=== PATIENT | female | born 1970 | race Caucasian/White ===

== ENCOUNTER 2022-07-05 20:50 | Inpatient (IN) | payer BC ==
[~2022-07-05] VITALS: Ht 152.4 cm; Wt 60.7 kg
[2022-07-05 21:01] LABS: BASOPHILS % (AUTO) 0 % (0-10); EOSINOPHILS % (AUTO) 0 % (0-10); HEMATOCRIT 41 % (35-52); HEMOGLOBIN 13.7 g/dL (11.5-16.0); LYMPHOCYTES # (AUTO) 0.7 10^3/uL (1.0-4.0); LYMPHOCYTES % (AUTO) 6 % (12-44); MEAN CORPUSCULAR HEMOGLOBIN 32 pg (25-34); MEAN CORPUSCULAR HGB CONC 34 g/dL (32-36); MEAN CORPUSCULAR VOLUME 96 fL (80-99); MEAN PLATELET VOLUME 10.5 fL (9.0-12.2); MONOCYTES # (AUTO) 0.7 10^3/uL (0.0-1.0); MONOCYTES % (AUTO) 6 % (0-12); NEUTROPHILS # (AUTO) 10.5 10^3/uL (1.8-7.8); NEUTROPHILS % (AUTO) 88 % (42-75); PLATELET COUNT 180 10^3/uL (130-400); WHITE BLOOD COUNT 11.9 10^3/uL (4.3-11.0)
--- NOTE | 2022-07-05 21:11 | ED Psychosocial ---
General Chief Complaint: Substance Abuse Stated Complaint: POSS OD Source: family Exam Limitations: clinical condition History of Present Illness Date Seen by Provider: Jul 05, 2022 Time Seen by Provider: 20:55 Initial Comments Patient is a 51-year-old female history of alcoholism presents after an apparent drug overdose. Patient was involved in a DUI overnight and rested. She was last seen normal several hours ago by her spouse who upon returning from work this evening found her to be agitated confused with tremors. Patient had empty bottle of Xanax 0.25 milligrams Xanax, which was filled 3 days ago with 48 pills missed, and an empty bottle of Wellbutrin 150 mg XL filled 8 days ago with 22 pills missing. The patient is continued to be agitated brought to the ED by POV per the patient's spouse there is no statement or no that she intended to harm herself. She has history of previous suicide attempts. History is limited by the patient's clinical condition. Timing/Duration: other Severity: moderate Associated Symptoms: other Allergies and Home Medications Allergies Uncoded Allergies: Unknown (Allergy, Unknown, 07/05/22) Unknown what allergies are Patient Home Medication List Home Medication List Reviewed: Yes Review of Systems Constitutional: see HPI EENTM: see HPI Respiratory: see HPI Cardiovascular: see HPI Gastrointestinal: see HPI Genitourinary: see HPI Musculoskeletal: see HPI Skin: see HPI Psychiatric/Neurological: See HPI All Other Systems Reviewed Negative Unless Noted: No Physical Exam Vital Signs - First Documented 07/05/22 20:50 Temp 36.4 Pulse 116 Resp 20 B/P (MAP) 148/110 (123) Pulse Ox 93 O2 Delivery Room Air Capillary Refill : Height, Weight, BMI Height: '" Weight: lbs. oz. kg; BMI Method: General Appearance: other ( delirium with agitation and coarse resting tremors.) HEENT: PERRL/EOMI, normal ENT inspection, other (Gag reflex intact) Neck: full range of motion Respiratory: lungs clear Cardiovascular: tachycardia Gastrointestinal: non tender, soft Extremities: non-tender, normal inspection Neurologic/Psychiatric: alert, other (Agitated, nonverbal, coarse resting tremor) Thoughts/Hallucinations: other (Unable to evaluate) Skin: diaphoresis, other (Diaphoresis) Progress/Results/Core Measures Results/Orders Lab Results Laboratory Tests Test 07/05/22 20:55 07/05/22 21:00 07/05/22 21:17 Range/Units White Blood Count 11.9 H 4.3-11.0 10^3/uL Red Blood Count 4.26 3.80-5.11 10^6/uL Hemoglobin 13.7 11.5-16.0 g/dL Hematocrit 41 35-52 % Mean Corpuscular Volume 96 80-99 fL Mean Corpuscular Hemoglobin 32 25-34 pg Mean Corpuscular Hemoglobin Concent 34 32-36 g/dL Red Cell Distribution Width 13.5 10.0-14.5 % Platelet Count 180 130-400 10^3/uL Mean Platelet Volume 10.5 9.0-12.2 fL Immature Granulocyte % (Auto) 0 % Neutrophils (%) (Auto) 88 H 42-75 % Lymphocytes (%) (Auto) 6 L 12-44 % Monocytes (%) (Auto) 6 0-12 % Eosinophils (%) (Auto) 0 0-10 % Basophils (%) (Auto) 0 0-10 % Neutrophils # (Auto) 10.5 H 1.8-7.8 10^3/uL Lymphocytes # (Auto) 0.7 L 1.0-4.0 10^3/uL Monocytes # (Auto) 0.7 0.0-1.0 10^3/uL Eosinophils # (Auto) 0.0 0.0-0.3 10^3/uL Basophils # (Auto) 0.0 0.0-0.1 10^3/uL Immature Granulocyte # (Auto) 0.0 0.0-0.1 10^3/uL Neutrophils % (Manual) 85 % Lymphocytes % (Manual) 9 % Monocytes % (Manual) 6 % Percent Immature Platelet Fraction 5.2 0.0-7.6 % Sodium Level 140 135-145 MMOL/L Potassium Level 3.5 L 3.6-5.0 MMOL/L Chloride Level 99 98-107 MMOL/L Carbon Dioxide Level 26 21-32 MMOL/L Anion Gap 15 H 5-14 MMOL/L Blood Urea Nitrogen 18 7-18 MG/DL Creatinine 0.71 0.60-1.30 MG/DL Estimat Glomerular Filtration Rate 103 BUN/Creatinine Ratio 25 Glucose Level 139 H 70-105 MG/DL Calcium Level 8.9 8.5-10.1 MG/DL Corrected Calcium 8.7 8.5-10.1 MG/DL Magnesium Level 2.2 1.6-2.4 MG/DL Total Bilirubin 0.4 0.1-1.0 MG/DL Aspartate Amino Transf (AST/SGOT) 30 5-34 U/L Alanine Aminotransferase (ALT/SGPT) 14 0-55 U/L Alkaline Phosphatase 56 40-136 U/L Total Protein 6.9 6.4-8.2 GM/DL Albumin 4.3 3.2-4.5 GM/DL Salicylates Level < 0.3 L 5.0-20.0 MG/DL Acetaminophen Level < 10 L 10-30 UG/ML Serum Alcohol < 10 <10 MG/DL Urine Opiates Screen NEGATIVE NEGATIVE Urine Oxycodone Screen NEGATIVE NEGATIVE Urine Methadone Screen NEGATIVE NEGATIVE Urine Propoxyphene Screen NEGATIVE NEGATIVE Urine Barbiturates Screen NEGATIVE NEGATIVE Ur Tricyclic Antidepressants Screen NEGATIVE NEGATIVE Urine Phencyclidine Screen NEGATIVE NEGATIVE Urine Amphetamines Screen NEGATIVE NEGATIVE Urine Methamphetamines Screen NEGATIVE NEGATIVE Urine Benzodiazepines Screen POSITIVE H NEGATIVE Urine Cocaine Screen NEGATIVE NEGATIVE Urine Cannabinoids Screen NEGATIVE NEGATIVE Glucometer 133 H 70-110 MG/DL My Orders Orders - MIRNA LOPEZ DO Cbc With Automated Diff (07/05/22 20:55) Comprehensive Metabolic Panel (07/05/22 20:55) Ekg Tracing (07/05/22 20:55) Magnesium (07/05/22 20:55) Drug Screen Stat (Urine) (07/05/22 20:55) Alcohol (07/05/22 20:55) Catheter(Urinary) Insert & Ass 03,15 (07/05/22 20:55) Manual Differential (07/05/22 20:55) Acetaminophen (07/05/22 21:05) Accucheck Stat ONCE (07/05/22 21:13) Monitor-Rhythm Ecg Trace Only (07/05/22 21:21) Ferrari Cath (07/05/22 21:21) Ed Iv/Invasive Line Start (07/05/22 21:21) Creatine Kinase (07/05/22 21:29) Propofol Drip (Icu) (Diprivan Drip (Icu) (07/05/22 21:45) Sedation Vacation 05 (07/05/22 21:32) Magnesium (07/05/22 05:00) Chest 1 View Ap/Pa Only (2/25/23 21:32) Ct Head Wo (07/05/22 21:32) Salicylate (07/05/22 21:41) Vital Signs/I&O 07/05/22 20:50 Temp 36.4 Pulse 116 Resp 20 B/P (MAP) 148/110 (123) Pulse Ox 93 O2 Delivery Room Air Departure Communication (Admissions) EKG: Sinus tach, rate 109, nonspecific ST-T wave abnormalities QRS, normal. Chest x-ray: ET tube in proper placement Patient with acute symptoms bupropion and Xanax overdose with delirium, agitation tachyarrhythmia. No seizure activity witnessed. QRS normal. Blood sugar normal. Lab work otherwise reassuring. Ativan IV fluids given. Poison control notified. Recommendations are for continued supportive care and cardiac monitoring. Given the patient's history of alcoholism she is at high risk for seizures. Dr. Chirinos to admit to ICU. Dr. Silvana Muniz consulted. Impression Primary Impression: Agitation Additional Impressions: Acute delirium Drug overdose Tachyarrhythmia Chronic alcohol abuse Disposition: ADMITTED INPATIENT Condition: Critical Admissions Decision to Admit Reason: Admit from ER (General) Decision to Admit/Date: Jul 05, 2022 Time/Decision to Admit Time: 22:14 Transfer Method of Transfer: EMS Departure-Patient Inst. Referrals: NO,LOCAL PHYSICIAN (PCP/Family) Primary Care Physician MIRNA LOPEZ DO Jul 05, 2022 21:11
[2022-07-05 21:15] LABS: AMPHETAMINE SCREEN, URINE NEGATIVE (NEGATIVE); BARBITURATE SCREEN URINE NEGATIVE (NEGATIVE); BENZODIAZEPINES SCREEN URINE POSITIVE (NEGATIVE); CANNABINOID SCREEN, URINE NEGATIVE (NEGATIVE); COCAINE SCREEN URINE NEGATIVE (NEGATIVE); METHADONE STAT NEGATIVE (NEGATIVE); OPIATE SCREEN URINE NEGATIVE (NEGATIVE); OXYCODONE STAT NEGATIVE (NEGATIVE); PROPOXYPHENE STAT NEGATIVE (NEGATIVE); TRICYCLIC ANTIDEPRESSANTS SCRE NEGATIVE (NEGATIVE)
[2022-07-05 21:23] LABS: ALANINE AMINOTRANSFERASE 14 U/L (0-55); ALBUMIN 4.3 GM/DL (3.2-4.5); ALKALINE PHOSPHATASE 56 U/L (40-136); BILIRUBIN,TOTAL 0.4 MG/DL (0.1-1.0); BUN/CREATININE RATIO 25; CALCIUM 8.9 MG/DL (8.5-10.1); CARBON DIOXIDE 26 MMOL/L (21-32); CHLORIDE 99 MMOL/L (98-107); CREATININE SERUM 0.71 MG/DL (0.60-1.30); GFR ESTIMATED 103; GLUCOSE 139 MG/DL (70-105); MAGNESIUM 2.2 MG/DL (1.6-2.4); POTASSIUM 3.5 MMOL/L (3.6-5.0); SODIUM 140 MMOL/L (135-145); TOTAL PROTEIN 6.9 GM/DL (6.4-8.2)
[2022-07-05 21:42] LABS: LYMPHOCYTES % (MANUAL) 9 %; MONOCYTES % (MANUAL) 6 %; NEUTROPHILS % (MANUAL) 85 %
[2022-07-05] MEDS ORDERED: PROPOFOL DRIP (ICU) 100 ML IV SCH (21:45)
--- NOTE | 2022-07-05 21:58 | Diagnostic Imaging Report ---
PROCEDURE: CT head without contrast. TECHNIQUE: Multiple contiguous axial images were obtained through the brain without the use of intravenous contrast. Auto Exposure Controls were utilized during the CT exam to meet ALARA standards for radiation dose reduction. INDICATION: Altered mental status. COMPARISON: None. FINDINGS: No intracranial hemorrhage, mass effect, hydrocephalus or extra-axial fluid collection. No CT evidence of a territorial infarction. Osseous structures are intact. Paranasal sinuses and mastoids are clear, where seen. IMPRESSION: No acute intracranial CT finding. Dictated by: Dictated on workstation # [id number]
[2022-07-05 23:32] VITALS: BP 115/91
[2022-07-05] MEDS ORDERED: NS IV 500 ML 500 ML IV PRN (23:45)
[2022-07-06 00:05] LABS: ABG BASE EXCESS 2.3 MMOL/L (-2.5-2.5); ABG OXYGEN SATURATION 100 % (94-100); ABG PCO2 26 MMHG (35-45); ABG PH 7.58 (7.37-7.43); ABG PO2 314 MMHG (79-93); ABG TCO2 25.4 MMOL/L (21.0-31.0)
[2022-07-06 00:06] LABS: ALLENS TEST NO; INSPIRED O2 100%; PATIENT TEMP 36.6; VENTILATOR YES
[2022-07-06] MEDS ORDERED: D5 NS 1000 ML IV SOLUTION 1,000 ML IV SCH (01:15)
[2022-07-06 02:37] VITALS: BP 97/61
[2022-07-06 03:52] LABS: BASOPHILS % (AUTO) 0 % (0-10); EOSINOPHILS % (AUTO) 0 % (0-10); HEMATOCRIT 35 % (35-52); LYMPHOCYTES # (AUTO) 0.5 10^3/uL (1.0-4.0); LYMPHOCYTES % (AUTO) 5 % (12-44); MEAN CORPUSCULAR HEMOGLOBIN 32 pg (25-34); MEAN CORPUSCULAR HGB CONC 34 g/dL (32-36); MEAN CORPUSCULAR VOLUME 95 fL (80-99); MEAN PLATELET VOLUME 10.9 fL (9.0-12.2); MONOCYTES # (AUTO) 0.6 10^3/uL (0.0-1.0); MONOCYTES % (AUTO) 7 % (0-12); NEUTROPHILS # (AUTO) 7.9 10^3/uL (1.8-7.8); NEUTROPHILS % (AUTO) 88 % (42-75); PLATELET COUNT 156 10^3/uL (130-400); WHITE BLOOD COUNT 9.1 10^3/uL (4.3-11.0)
[2022-07-06 04:01] LABS: CALCIUM 7.7 MG/DL (8.5-10.1)
[2022-07-06 04:05] LABS: CREATININE SERUM 0.74 MG/DL (0.60-1.30); PHOSPHORUS 1.3 MG/DL (2.3-4.7)
[2022-07-06 04:07] LABS: MAGNESIUM 1.8 MG/DL (1.6-2.4)
[2022-07-06 04:26] LABS: POTASSIUM 2.5 MMOL/L (3.6-5.0)
[2022-07-06] MEDS: POTASSIUM CL 10MEQ/50ML IVPB 50 ML IV SCH ×11 (04:45→22:54)
[2022-07-06] MEDS: KCL 20 MEQ TAB (K-DUR) PO SCH (04:46)
[2022-07-06 04:54] LABS: ABG BASE EXCESS 3.8 MMOL/L (-2.5-2.5); ABG OXYGEN SATURATION 100 % (94-100); ABG PCO2 28 MMHG (35-45); ABG PH 7.57 (7.37-7.43); ABG PO2 182 MMHG (79-93); ABG TCO2 27.1 MMOL/L (21.0-31.0); ALLENS TEST NO; INSPIRED O2 40%; PATIENT TEMP 36.3; VENTILATOR YES
[2022-07-06] MEDS: MAGNESIUM 1 GM/100 ML IVPB 100 ML IV SCH ×3 (06:05→08:08)
[2022-07-06] MEDS: LORazepam INJ 2 MG/ML (ATIVAN) VIAL IV PRN ×2 (06:13→19:45)
--- NOTE | 2022-07-06 06:21 | History & Physical-Hospitalist ---
History of Present Illness HPI/Chief Complaint CC: Alcohol intoxication with withdrawal and Wellbutrin and Xanax OD HPI: This is a 51yoWF who has a h/o alcoholism who presented to the [facility] ER in alcohol withdrawal with intoxication with OD of Wellbutrin and Xanax. She was intubated to protect her airway. Family at bedside. UOP and mild hypotension noted so ordered fluid boluses. Source: family, RN/MD Exam Limitations: clinical condition Date Seen 07/06/22 Time Seen by a Provider: 11:30 Attending Physician No,Local Physician PCP Admitting Physician: Radha Chirinos DO Attending Physician: Radha Chirinos DO Referring Physician Date of Admission Jul 05, 2022 at 23:15 Home Medications & Allergies Home Medications Reviewed patient Home Medication Reconciliation performed by pharmacy medication reconciliations graphics edit technician and/or nursing. Patients Allergies have been reviewed. Allergies Allergies Uncoded Allergies Unknown ( Allergy, Unknown, 07/05/22) Unknown what allergies are Past Eztczpz-Xicmem-Rivaxs Hx Patient Social History Smoking Status: Unknown if Ever Smoked Smokeless Tobacco Frequency: Unknown if Ever Used Use of E-Cig and/or Vaping Andrew: Unknown if Ever Used Substance use?: Yes Substance type: Misuse of prescript meds Alcohol Use?: Yes Pt feels they are or have been: Unable to obtain Current Status Advance Directives: Unable to obtain Communicates: Verbally Primary Language: Lao Preferred Spoken Language: Lao Is interpretation needed?: No Past Medical History Nursing Suicide Risk Notes: This information was provided by the person who dropped her off to the ER. Patient has had previous suicide attempts by overdose in the past. Review of Systems Constitutional: see HPI Physical Exam Physical Exam Vital Signs Vital Signs - First Documented 07/05/22 07/05/22 07/05/22 20:50 22:33 23:15 Temp 36.4 Pulse 116 Resp 20 B/P (MAP) 148/110 (123) Pulse Ox 93 O2 Delivery Room Air O2 Flow Rate 50.00 FiO2 100 Capillary Refill : Less Than 3 Seconds Height, Weight, BMI Height: '" Weight: lbs. oz. kg; 22.17 BMI Method: General Appearance: Chronically ill, Other (sedated and intubated) Respiratory: Lungs Clear, Normal Breath Sounds Cardiovascular: Regular Rate, Rhythm Results Results/Procedures Labs Laboratory Tests 07/05/22 20:55 07/06/22 03:33 07/06/22 15:58 Patient resulted labs reviewed. Assessment/Plan Admission Diagnosis Assessment: Acute respiratory failure requiring intubation Acute alcohol intoxication with withdrawal OD on Wellbutrin and Xanax Plan: EICU appreciated Vent management Supportive care IVF Admission Status: Inpatient Order (span 2 midnights) Reason for Inpatient Admission: resp failure Diagnosis/Problems Diagnosis/Problems (1) Drug overdose Status: Acute (2) Acute delirium Status: Acute (3) Chronic alcohol abuse Status: Acute RADHA CHIRINOS DO Jul 06, 2022 06:21
--- NOTE | 2022-07-06 07:08 | Diagnostic Imaging Report ---
INDICATION: ET tube placement FINDINGS: ET tube tip lower thoracic trachea. The lungs symmetrically expanded. No focal consolidation, failure, effusion or pneumothorax. IMPRESSION: Clear chest. ET tube projects in good alignment. Dictated by: Dictated on workstation # [id number]
--- NOTE | 2022-07-06 07:30 | Tele-ICU Progress Note ---
Progress Note video rounds completed 51 y/o f who presented to the ED with agitation, delirium and tremors assoc with an OD of xanax and wellbutrin. She was intubated in the ED She has a hx of ETOH abuse and prior suicidal gestures. Her Urine tox was positive for benzos QRS: wnl Poison control notified Currently intubated Vent: 18/400/40%/5 AB.57/28/182/26 Pulse: 86 NSR BP: 102/66 O2 sat: 98% Sedated on propofol and comfortable IMP: OD with benzos and wellbutrin on mechanical vent. LISA: will turn down rateto 12 since she is being over ventilated add protonic and lovenox Consider SBT later Time spent in evaluation 20 minutes Focused Exam Height, Weight, BMI Height: '" Weight: lbs. oz. kg; 22.17 BMI Method: Labs Laboratory Tests 07/05/22 20:55 07/06/22 03:33 Results Results/Procedures Labs Laboratory Tests 07/05/22 20:55 07/06/22 03:33 Patient resulted labs reviewed. Results Labs Labs Laboratory Tests 07/05/22 20:55: White Blood Count 11.9H, Red Blood Count 4.26, Hemoglobin 13.7, Hematocrit 41, Mean Corpuscular Volume 96, Mean Corpuscular Hemoglobin 32, Mean Corpuscular Hemoglobin Concent 34, Red Cell Distribution Width 13.5, Platelet Count 180, Mean Platelet Volume 10.5, Immature Granulocyte % (Auto) 0, Neutrophils (%) (Auto) 88H, Lymphocytes (%) (Auto) 6L, Monocytes (%) (Auto) 6, Eosinophils (%) (Auto) 0, Basophils (%) (Auto) 0, Neutrophils # (Auto) 10.5H, Lymphocytes # (Auto) 0.7L, Monocytes # (Auto) 0.7, Eosinophils # (Auto) 0.0, Basophils # (Auto) 0.0, Immature Granulocyte # (Auto) 0.0, Neutrophils % (Manual) 85, Lymphocytes % (Manual) 9, Monocytes % (Manual) 6, Percent Immature Platelet Fraction 5.2, Sodium Level 140, Potassium Level 3.5L, Chloride Level 99, Carbon Dioxide Level 26, Anion Gap 15H, Blood Urea Nitrogen 18, Creatinine 0.71, Estimat Glomerular Filtration Rate 103, BUN/Creatinine Ratio 25, Glucose Level 139H, Calcium Level 8.9, Corrected Calcium 8.7, Magnesium Level 2.2, Total Bilirubin 0.4, Aspartate Amino Transf (AST/SGOT) 30, Alanine Aminotransferase (ALT/SGPT) 14, Alkaline Phosphatase 56, Total Creatine Kinase 649H, Total Protein 6.9, Albumin 4.3, Salicylates Level < 0.3L, Acetaminophen Level < 10L, Serum Alcohol < 10 07/05/22 21:00: Urine Opiates Screen NEGATIVE, Urine Oxycodone Screen NEGATIVE, Urine Methadone Screen NEGATIVE, Urine Propoxyphene Screen NEGATIVE, Urine Barbiturates Screen NEGATIVE, Ur Tricyclic Antidepressants Screen NEGATIVE, Urine Phencyclidine Screen NEGATIVE, Urine Amphetamines Screen NEGATIVE, Urine Methamphetamines Screen NEGATIVE, Urine Benzodiazepines Screen POSITIVEH, Urine Cocaine Screen NEGATIVE, Urine Cannabinoids Screen NEGATIVE 07/05/22 21:17: Glucometer 133H 07/05/22 23:52: Blood Gas Puncture Site LEFT RAD, Blood Gas Patient Temperature 36.6, Arterial Blood pH 7.58H, Arterial Blood Partial Pressure CO2 26L, Arterial Blood Partial Pressure O2 314H, Arterial Blood HCO3 25, Arterial Blood Total CO2 25.4, Arter ial Blood Oxygen Saturation 100, Arterial Blood Base Excess 2.3, Panda Test NO, Blood Gas Ventilator Setting YES, Blood Gas Inspired Oxygen 100% 07/06/22 00:13: Glucometer 90 07/06/22 03:33: White Blood Count 9.1, Red Blood Count 3.73L, Hemoglobin 12.0, Hematocrit 35, Mean Corpuscular Volume 95, Mean Corpuscular Hemoglobin 32, Mean Corpuscular Hemoglobin Concent 34, Red Cell Distribution Width 13.4, Platelet Count 156, Mean Platelet Volume 10.9, Immature Granulocyte % (Auto) 0, Neutrophils (%) (Auto) 88H, Lymphocytes (%) (Auto) 5L, Monocytes (%) (Auto) 7, Eosinophils (%) (Auto) 0, Basophils (%) (Auto) 0, Neutrophils # (Auto) 7.9H, Lymphocytes # (Auto) 0.5L, Monocytes # (Auto) 0.6, Eosinophils # (Auto) 0.0, Basophils # (Auto) 0.0, Immature Granulocyte # (Auto) 0.0, Sodium Level 139, Potassium Level 2.5#*L, Chloride Level 106, Carbon Dioxide Level 20L, Anion Gap 13, Blood Urea Nitrogen 15, Creatinine 0.74, Estimat Glomerular Filtration Rate 98, BUN/Creatinine Ratio 20, Glucose Level 372H, Calcium Level 7.7L, Phosphorus Level 1.3L, Magnesium Level 1.8, Total Creatine Kinase 699H, Triglycerides Level 60 07/06/22 03:40: Blood Gas Puncture Site LEFT RADIAL, Blood Gas Patient Temperature 36.3, Arterial Blood pH 7.57H, Arterial Blood Partial Pressure CO2 28L, Arterial Blood Partial Pressure O2 182H, Arterial Blood HCO3 26, Arterial Blood Total CO2 27.1, Arterial Blood Oxygen Saturation 100, Arterial Blood Base Excess 3.8H, Panda Test NO, Blood Gas Ventilator Setting YES, Blood Gas Inspired Oxygen 40% MORAIMA VELA MD Jul 06, 2022 07:30
[2022-07-06 07:38] VITALS: BP 103/68
[2022-07-06] MEDS: PANTOPRAZOLE 40 MG (PROTONIX) VIAL IV SCH (08:08)
[2022-07-06] MEDS: ENOXAPARIN 40 MG/0.4 ML (LOVENOX) SYR SC SCH (08:08)
--- NOTE | 2022-07-06 08:09 | Diagnostic Imaging Report ---
EXAMINATION: Chest radiograph, portable AP view. DATE: 07/06/2022 4:32 AM INDICATION: 51-year-old female, intubation. COMPARISON: July 05, 2022. FINDINGS: The intubation device is approximately 2 cm above the reta. The nasogastric tube is in the stomach. Heart size and mediastinal contours are unchanged. There is no identified pneumothorax. There is no large pleural effusion. There are subtle opacities projecting in the left lower lung zone. IMPRESSION: 1. Subtle opacities in left lower lung zone which may reflect atelectasis and/or infiltrate. 2. Interval placement of nasogastric tube in the stomach. Dictated by: Dictated on workstation # [id number]
[2022-07-06] MEDS: NS IV 1000 ML 1,000 ML IV SCH ×2 (09:30→19:33)
[2022-07-06] MEDS ORDERED: inSUlin ASPART (NovoLOG) 1 UNIT/0.01 ML (CHARGE PER UNIT) SC NR (09:30)
[2022-07-06 10:56] VITALS: BP 90/55
[2022-07-06] MEDS ORDERED: DEXTROSE 50% 50 ML (IMS) SYR ONE (11:08)
[2022-07-06] MEDS ORDERED: DEXTROSE 50% 50 ML (IMS) SYR IV ONE (11:15)
[2022-07-06] MEDS ORDERED: NS (IVPB) 500 ML IV ONE (12:00)
[2022-07-06] MEDS ORDERED: NS (IVPB) 500 ML IV PRN (12:00)
[2022-07-06] MEDS ORDERED: DEXTROSE 50% 50 ML (IMS) SYR IV PRN (12:15)
[2022-07-06] MEDS: THIAMINE INJECTION 100 MG, FOLIC ACID INJECTION 1 MG, VITAMIN MULTI INJECTION 10 ML, MA... IV SCH ×5 (13:00)
[2022-07-06 18:46] VITALS: BP 102/63
[2022-07-06] MEDS ORDERED: MUPIROCIN 2% OINT 22 GM (BACTROBAN) TUBE TOP SCH (21:00)
[2022-07-06 21:56] VITALS: BP 101/66
[2022-07-07] MEDS: NS IV 1000 ML 1,000 ML IV SCH ×4 (01:56→23:45)
[2022-07-07 02:21] VITALS: BP 104/97
[2022-07-07 04:46] LABS: BASOPHILS # (AUTO) 0.1 10^3/uL (0.0-0.1); BASOPHILS % (AUTO) 0 % (0-10); EOSINOPHILS % (AUTO) 0 % (0-10); HEMATOCRIT 39 % (35-52); HEMOGLOBIN 13.2 g/dL (11.5-16.0); LYMPHOCYTES # (AUTO) 1.4 10^3/uL (1.0-4.0); LYMPHOCYTES % (AUTO) 6 % (12-44); MEAN CORPUSCULAR HEMOGLOBIN 33 pg (25-34); MEAN CORPUSCULAR HGB CONC 34 g/dL (32-36); MEAN CORPUSCULAR VOLUME 98 fL (80-99); MONOCYTES # (AUTO) 1.8 10^3/uL (0.0-1.0); MONOCYTES % (AUTO) 8 % (0-12); NEUTROPHILS # (AUTO) 20.1 10^3/uL (1.8-7.8); NEUTROPHILS % (AUTO) 85 % (42-75); PLATELET COUNT 114 10^3/uL (130-400); WHITE BLOOD COUNT 23.6 10^3/uL (4.3-11.0)
[2022-07-07 05:01] LABS: CALCIUM 7.6 MG/DL (8.5-10.1); CREATININE SERUM 0.63 MG/DL (0.60-1.30); PHOSPHORUS 1.9 MG/DL (2.3-4.7); POTASSIUM 4.6 MMOL/L (3.6-5.0)
[2022-07-07 05:18] LABS: BAND NEUTROPHILS 5 %; LYMPHOCYTES % (MANUAL) 3 %; MONOCYTES % (MANUAL) 7 %; NEUTROPHILS % (MANUAL) 85 %
[2022-07-07 05:19] LABS: RBC MORPH NORMAL
[2022-07-07 05:41] LABS: MAGNESIUM 2.8 MG/DL (1.6-2.4)
[2022-07-07] MEDS: KCL 20 MEQ TAB (K-DUR) PO SCH (06:02)
[2022-07-07] MEDS: POTASSIUM CL 10MEQ/50ML IVPB 50 ML IV SCH (06:02)
[2022-07-07] MEDS: MAGNESIUM 1 GM/100 ML IVPB 100 ML IV SCH (06:02)
[2022-07-07 06:49] VITALS: BP 107/65
[2022-07-07 07:26] LABS: ABG BASE EXCESS -2.9 MMOL/L (-2.5-2.5); ABG OXYGEN SATURATION 98 % (94-100); ABG PCO2 38 MMHG (35-45); ABG PH 7.37 (7.37-7.43); ABG PO2 82 MMHG (79-93); ABG TCO2 22.6 MMOL/L (21.0-31.0)
[2022-07-07 07:28] LABS: ALLENS TEST YES-POS; INSPIRED O2 30%; PATIENT TEMP 37.3; VENTILATOR YES
[2022-07-07] MEDS ORDERED: VANCOMYCIN INJECTION 0.1 MG in NS (IVPB) 250 ML IV SCH (08:15)
[2022-07-07] MEDS ORDERED: SODIUM PHOSPHATE INJ 30 MM in NS (IVPB) 250 ML INJ ONE (08:30)
[2022-07-07 08:42] VITALS: BP 120/76
[2022-07-07] MEDS ORDERED: VANCOMYCIN 1 GM/NS 250 ML IVPB IV ONE ×2 (09:00)
--- NOTE | 2022-07-07 09:32 | Physical Therapy Progress Note ---
Therapy Progress Note Patient currently sedated and intubated. RN instructed to notified PT when patient is extubated and PT will begin the next day. RN agrees. AJAY BARRETT PT Jul 07, 2022 09:32
[2022-07-07 10:07] LABS: ABG BASE EXCESS -2.9 MMOL/L (-2.5-2.5); ABG OXYGEN SATURATION 98 % (94-100); ABG PCO2 38 MMHG (35-45); ABG PH 7.37 (7.37-7.43); ABG PO2 87 MMHG (79-93); ABG TCO2 22.7 MMOL/L (21.0-31.0)
[2022-07-07 10:08] LABS: ALLENS TEST YES-POS; INSPIRED O2 30%; PATIENT TEMP 37; VENTILATOR YES
[2022-07-07 10:13] VITALS: BP 118/74
[2022-07-07] MEDS: ENOXAPARIN 40 MG/0.4 ML (LOVENOX) SYR SC SCH (10:48)
[2022-07-07] MEDS: THIAMINE INJECTION 100 MG, FOLIC ACID INJECTION 1 MG, VITAMIN MULTI INJECTION 10 ML, MA... IV SCH ×5 (10:50)
[2022-07-07] MEDS: PANTOPRAZOLE 40 MG (PROTONIX) VIAL IV SCH (10:50)
--- NOTE | 2022-07-07 12:12 | Tele-ICU Progress Note ---
Subjective Date Seen by a Provider: Jul 07, 2022 Time Seen by a Provider: 12:11 Subjective/Events-last exam (Tele-ICU Physician , progressnote) Available chart/ vitals / labs / Images reviewed H&P is from ER notes Patient's information available about PMH, allergy reviewed in EMR. ROS as per chart and RN report Video assessment done multiple times using teleICU camera, rest of exam as per RN Discussed with RN. This patient admitted with of overdose of Xanax and Wellbutrin with a loss of consciousness. She required intubation and mechanical ventilation. This a.m. after examination we have tried her on SBT and subsequently extubated. She is tolerating extubation well she currently she is on a nasal cannula. Repeat video visit made and found that she is tolerating well without any respiratory distress. She is currently on one-on-one suicidal precautions. Impression #1 1. Acute respiratory failure secondary to overdose 2. Xanax and Wellbutrin with overdose 3. History of suicidal ideation. 4. Leukocytosis, rule out any aspiration Recommendations 1. After SBT she is extubated and currently she is on a nasal cannula 2. Continue one-on-one with bedside sitter to prevent suicidal attempt 3. Behavioral consultation 4. Replace phosphorus and continue IV hydration 5. Monitor mental status. 6. IV antibiotics per primary care physician 7. DVT prophylaxis and ulcer prophylaxis. Coordination of care with primary care physicians and bedside consultants. Critical care time spent on this patient today is 32 minutes Sepsis Event Evaluation Height, Weight, BMI Height: '" Weight: lbs. oz. kg; 22.90 BMI Method: Exam Exam Patient acknowledged, consented, and participated in this virtual visit which was conducted using real time audio/video Vital Signs Date Time Temp Pulse Resp B/P (MAP) Pulse Ox O2 Delivery O2 Flow Rate FiO2 07/07/22 12:00 106 27 114/70 (85) 92 Nasal Cannula 2.00 07/07/22 11:00 108 25 114/70 (85) 91 Nasal Cannula 2.00 07/07/22 10:36 Nasal Cannula 2.00 07/07/22 10:13 11 30 93 30 07/07/22 10:00 106 32 118/74 (89) 93 Mechanical Ventilator 30.00 07/07/22 09:00 108 20 119/69 (86) 95 Mechanical Ventilator 30.00 07/07/22 08:42 112 21 97 30 07/07/22 08:00 98 12 111/70 (84) 96 Mechanical Ventilator 30.00 07/07/22 08:00 36.3 07/07/22 07:24 100 07/07/22 07:00 100 11 106/65 (79) 94 Mechanical Ventilator 30.00 07/07/22 06:49 103 12 90 30 07/07/22 06:02 104 108/69 07/07/22 06:00 105 14 108/69 (82) 98 Mechanical Ventilator 30.00 07/07/22 05:00 120 18 92 07/07/22 05:00 105 14 110/67 (81) 98 Mechanical Ventilator 30.00 07/07/22 04:00 98 Mechanical Ventilator 30 07/07/22 04:00 101 14 111/70 (84) 99 Mechanical Ventilator 30.00 07/07/22 04:00 37.3 07/07/22 03:00 98 14 106/68 (81) 99 Mechanical Ventilator 30.00 07/07/22 02:21 98 12 99 30 07/07/22 02:00 101 14 106/69 (81) 99 Mechanical Ventilator 30.00 07/07/22 02:00 100 106/68 07/07/22 01:00 99 14 100/63 (76) 97 Mechanical Ventilator 30.00 07/07/22 01:00 100 07/07/22 00:00 37.5 07/07/22 00:00 101 14 102/65 (82) 99 Mechanical Ventilator 30.00 07/06/22 23:59 97 Mechanical Ventilator 30 07/06/22 23:30 102 102/63 07/06/22 23:00 101 14 103/64 (78) 99 Mechanical Ventilator 30.00 07/06/22 22:00 104 14 103/63 (76) 98 Mechanical Ventilator 30.00 07/06/22 21:56 91 13 97 30 07/06/22 21:00 106 14 105/63 (75) 97 Mechanical Ventilator 30.00 07/06/22 20:00 97 Mechanical Ventilator 30 07/06/22 20:00 101 14 108/64 (80) 97 Mechanical Ventilator 30.00 07/06/22 19:33 113 119/72 07/06/22 19:00 37.4 Mechanical Ventilator 30.00 07/06/22 19:00 101 14 100/62 (74) 98 Mechanical Ventilator 30.00 07/06/22 19:00 101 07/06/22 18:46 101 13 97 30 07/06/22 18:00 102 14 105/65 (79) 97 Mechanical Ventilator 40.00 07/06/22 17:12 36.7 07/06/22 17:00 102 11 104/63 (76) 95 Mechanical Ventilator 40.00 07/06/22 16:00 114 16 102/68 (79) 97 Mechanical Ventilator 40.00 07/06/22 15:38 98 Mechanical Ventilator 40 07/06/22 15:00 102 12 102/65 (76) 100 Mechanical Ventilator 40.00 07/06/22 14:00 93 12 91/54 (66) 100 Mechanical Ventilator 40.00 07/06/22 13:00 96 12 86/52 (64) 99 Mechanical Ventilator 40.00 07/06/22 12:32 101 I & O 07/07/22 07:00 Intake Total 3915.2 ml Output Total 975 ml Balance 2940.2 ml Height & Weight Height: '" Weight: lbs. oz. kg; 22.90 BMI Method: General Appearance: Chronically ill, Other (sedated and intubated) Respiratory: Lungs Clear, Normal Breath Sounds Cardiovascular: Regular Rate, Rhythm Capillary Refill: Less Than 3 Seconds Gastrointestinal: non tender, soft Other comments PE PER RN Results Lab Laboratory Tests 07/05/22 20:55 07/06/22 03:33 07/06/22 15:58 07/07/22 04:32 Assessment/Plan Assessment/Plan ABOVE Critical Care: Ventilator Management Time spent with patient (mins): 32 LUCIE QUEVEDO MD Jul 07, 2022 12:12
[2022-07-07] MEDS ORDERED: BUPR150T24 PO (12:18)
[2022-07-07] MEDS ORDERED: ESCI20TA39 PO (12:18)
[2022-07-07] MEDS ORDERED: ALPR0.5T7 PO (12:18)
[2022-07-07] MEDS ORDERED: FURO20TA4 PO (12:18)
[2022-07-07] MEDS ORDERED: DOCU-26 PO (12:20)
[2022-07-07] MEDS ORDERED: IBUP-2473 PO (12:21)
[2022-07-07] MEDS ORDERED: MELA5TAB14 PO (12:21)
[2022-07-07] MEDS ORDERED: DIPH25CA79 PO (12:23)
--- NOTE | 2022-07-07 14:44 | ST Dysphagia Evaluation ---
Speech Evaluation-General Medical Diagnosis Acute Respiratory Failure, Alchohol Withdrawl, OD Onset Date: Jul 05, 2022 Therapy Diagnosis Therapy Diagnosis: Mild Pharyngeal Dysphagia Referral Referring Physician: Dr. Sebastian Reason for Referral: Evaluation/Treatment Medical History Reviewed History: Yes Speech PLF/Current-Dysphagia Prior Level of Function The patient reported she consumed a regular consistency diet with thin liquids prior to hospitalization. The patient denied concerns or difficulties with her oropharyngeal swallowing function. Subjective The patient was lying in bed, sleeping, upon entrance to her room by the clinician. The patient woke with a verbal greeting from the clinician and was agreeable to participation in the clinical bedside swallowing evaluation. The p atient was positioned upright in bed for safe swallowing. The patient is currently receiving 2l supplemental oxygen via nasal cannula with SpO2% at 94%. To note, the patient displays a weak, dysphonic vocal quality. Cognitive Status Patient Orientation: Person, Place, Time Oral Motor Skills Dentition: Natural Denture Type: Full- Upper & Lower Current Food Consistancy: Pureed, Thin Liquids, Schubert Liquids Ability to Follow Directions: Good Oral Expression Ability: Mild Impairment Voice Voice Phonatory-Based Quality: Breathy, Weak Voice Pitch: Normal Voice Loudness: Moderately Soft/Quiet Face Facial Symmetry: Symmetrical Oral-Facial Assessment Oral-Facial Dentition: Normal Labial Seal Description: Normal Smile: Normal Puff Cheeks: Normal Lingual Protrusion: Normal Lingual ROM: Normal Lingual Strength: Abnormal Voluntary Cough: Yes (Weak.) Can Clear Throat Volitionally: Yes (Weak.) Productive Cough: No Productive Throat Clear: No Dysphagia Evaluation Consistencies Presented: Thin Liquid, Schubert Thick Liquid, Pureed The patient politely deferred solid consistencies on this date. The patient does not display oral impairments to the swallow function. Laryngeal elevation was present to palpation. Funct. Velo/Pharyngeal Symptom: Cough After Swallow, Wet Voice The patient was provided thin liquid via ice chips, teaspoons, and straw drinks, mildly thick liquids via teaspoon and straw drink, and puree. The patient politely deferred solid trials on this date. The patient did not display suspected s/s of suspected aspiration with ice chips or thin liquid via teaspoon, mildly thick liquids via teaspoon and straw, and puree. The patient demonstrated a delayed, rigorous cough with thin liquids via straw drink. Dietary Recommendations: Pureed Liquid Recommendations: Schubert Consistancy (Mildly thick.) Recommendations: - PU4 with mildly thick liquids (nectar-thick liquids), as tolerated. - Fully upright and alert for P.O. intake. - Small, single bites and sips, only - Ice chips, sparingly, for oral comfort and oropharyngeal swallowing rehabilitation. - Monitor for s/s of suspected aspiration with P.O. intake. If demonstrated, please contact speech pathology. - Speech pathology will monitor the patient's oropharyngeal swallowing function and diet tolerance daily, upgrading when/if appropriate. The results and recommendations were recorded on the in-room white board, provided to the patient, and discussed with the RN immediately following completion of the study. Dysphagia Evaluation Summary The patient demonstrated mild pharyngeal dysphagia characterized by suspected reduced glottal closure resulting in poor airway protection in the presence of bolus material. The patient displayed s/s of suspected aspiration with thin liquids characterized by a wet vocal quality and a delayed, rigorous cough. Speech Short Term Goals Short Term Goals Short Term Goals 1. The patient will display safe swallowing precautions with 80% accuracy, independently. Time Frame-STG: Three Days. Speech Plaster Tender Goals Plaster Tender Goals 1. The patient will tolerate the least restrictive diet consistency without s/s of suspected aspiration. Time Frame: One Week. Speech-Plan Treatment Plan Speech Therapy Treatment Plan: Continue Plan of Care Treatment Duration: Jul 11, 2022 Frequency: 3 times per week Estimated Hrs Per Day: .25 hour per day Rehab Potential: Fair Pt/Family Agrees to Plan: Yes Safety Risks/Education Teaching Recipient: Patient Teaching Methods: Discussion Response to Teaching: Verbalize Understanding, Reinforcement Needed Education Topics Provided: Safe Swallowing Precautions, Results, Recommendations Time Speech Therapy Time In: 14:20 Speech Therapy Time Out: 14:40 DATE: Jul 07, 2022 Total Billed Time: 20 Billed Treatment Time 1, SUZANNEDREW ROGELIO STARKMITRA ST Jul 07, 2022 14:44
--- NOTE | 2022-07-07 14:50 | Occupational Therapy Eval ---
OT Evaluation-General/PLF Medical Diagnosis Admission Date Jul 05, 2022 at 23:15 Medical Diagnosis: Alcohol intoxication with withdrawal and Wellbutrin and Xanax OD Onset Date: Jul 05, 2022 Therapy Diagnosis Therapy Diagnosis: weakness Precautions Precautions/Isolations: Contact Isolation, Aspiration, Fall Prevention Weight Bear Status Weight Bearing Restriction: Weight Bearing/Tolerated Referral Referral Reason: Self Care, Evaluation/Treatment Medical History Pertinent Medical History: Alcoholism Current History Suicide ideation,Alcohol intoxication with withdrawal and Wellbutrin and Xanax OD Reviewed History: Yes ADL-Prior Level of Function SCALE: Activities may be completed with or without assistive devices. 0-Ezbpdldext-ezkrlld completes the activity by him/herself with no assistance from a helper. 5-Set-up or Clean-up Assistance-helper sets up or cleans up; patient completes activity. [place] assists only prior to or following the activity. 4-Supervision or Touching Assistance-helper provides verbal cues and/or touching/steadying and/or contact guard assistance as patient completes activity. Assistance may be provided throughout the activity or intermittently. 3-Partial/Moderate Assistance-helper does LESS THAN HALF the effort. [place] lifts, holds or supports trunk or limbs, but provides less than half the effort. 2-Substantial/Maximal Assistance-helper does MORE THAN HALF the effort. [place] lifts or holds trunk or limbs and provides more than half the effort. 9-Myhosqgkc-lteyaj does ALL the effort. Patient does none of the effort to complete the activity. Or, the assistance of 2 or more helpers is required for the patient to complete the activity. If activity was not attempted, code reason: 7-Patient Refused. 9-Not Applicable-not attempted and the patient did not perform the activity before the current illness, exacerbation or injury. 10-Not Attempted due to Environmental Limitations-(lack of equipment, weather restraints, etc.). 88-Not Attempted due to Medical Conditions or Safety Concerns. Self Care: Independent Functional Cognition: Independent OT Current Status Subjective Preferred name Matilde Mental Status/Objective Patient Orientation: Person, Place, Situation Attachments: Ferrari Catheter, IV, Oxygen, Telemetry Current Upper Extremity ROM BUE ROM WFLS Upper Extremity Strength 3/5 BUE ADL-Treatment Eating (QC): 5 Oral Hygiene (QC): 4 Shower/Bathe Self (QC): 88 Upper Body Dressing (QC): 4 Lower Body Dressing (QC): 4 On/Off Footwear (QC): 4 Toileting Hygiene (QC): 88 Education OT Patient Education: Correct positioning, Energy conservation, Exercise program, Modified ADL techniques, Progress toward Goal/Update tx plan, Purpose of tx/functional activities, Reviewed precautions, Rehab process, Safety issues, Transfer techniques, Use of adapted equipment Teaching Recipient: Patient Teaching Methods: Demonstration, Discussion Response to Teaching: Verbalize Understanding, Reinforcement Needed OT Strike Planning Applications Goals Strike Planning Applications Goals Eating (QC): 6 Oral Hygiene (QC): 6 Toileting Hygiene (QC): 6 Shower/Bathe Self (QC): 6 Upper Body Dressing (QC): 6 Lower Body Dressing (QC): 6 On/Off Footwear (QC): 6 1=Demonstrate adherence to instructed precautions during ADL tasks. 2=Patient will verbalize/demonstrate understanding of assistive devices/modifications for ADL. 3=Patient will improve strength/tolerance for activity to enable patient to perform ADL's. OT Education/Plan Problem List/Assessment Assessment: Decreased Activ Tolerance, Decreased Safety Aware, Decreased UE Strength, Impaired Coordination, Impaired Funct Balance, Impaired Self-Care Skills Discharge Recommendations Plan/Recommendations: Continue POC Therapy Discharge Recommendati: Post Acute OT Treatment Plan/Plan of Care Treatment,Training & Education: Yes Patient would benefit from OT for education, treatment and training to promote independence in ADL's, mobility, safety and/or upper extremity function for ADL's. Plan of Care: ADL Retraining, Cognitive Retraining, Functional Mobility, Group Exercise/Act as Ind, UE Funct Exercise/Act Treatment Duration: Jul 19, 2022 Frequency: 3 times per week (3-5 times week) Estimated Hrs Per Day: .25 hour per day Agreement: Yes Rehab Potential: Guarded Time Start Time: 13:30 Stop Time: 13:45 DATE: Jul 07, 2022 Total Time Billed (hr/min): 15 Billed Treatment Time 1 visit EVM 1 15 RAINA MOCK OT Jul 07, 2022 14:50
--- NOTE | 2022-07-07 15:22 | Progress Note ---
Subjective Subjective/Events-last exam Pt seen at 0940. Pt remains intubated, on breathing trial at time of exam. and daughter at bedside state she went missing for a bit, was arrested for driving under the influence and hit and run, they bailed her out and she still seemed intoxicated. went to work and hid her medications, but she found them while he was at work and when he got home and she was too somnolent to arouse, they brought her to the hospital. He states she has done this with medications before, but not to this severity. Objective Exam Last Set of Vital Signs Vital Signs Date Time Temp Pulse Resp B/P (MAP) Pulse Ox O2 Delivery O2 Flow Rate FiO2 07/07/22 15:00 106 25 117/74 (88) 95 Nasal Cannula 2.00 07/07/22 10:13 30 07/07/22 08:00 36.3 Capillary Refill : Less Than 3 Seconds I&O Intake and Output 07/07/22 00:00 Intake Total 3115.2 ml Output Total 1275 ml Balance 1840.2 ml Intake Oral 0 ml IV Total 3115.2 ml Output Urine Total 1125 ml Gastric Drainage Total 150 ml General: Other (intubated) Lungs: Clear to Auscultation Heart: Regular Rate Abdomen: Normal Bowel Sounds Results/Procedures Lab Laboratory Tests 07/06/22 15:25: Glucometer 143H 07/06/22 15:58: Potassium Level 3.9 07/06/22 21:07: Glucometer 147H 07/07/22 00:22: Glucometer 107 07/07/22 04:32: White Blood Count 23.6H, Red Blood Count 3.99, Hemoglobin 13.2, Hematocrit 39, Mean Corpuscular Volume 98, Mean Corpuscular Hemoglobin 33, Mean Corpuscular Hemoglobin Concent 34, Red Cell Distribution Width 14.4, Platelet Count 114L, Mean Platelet Volume 11.0, Immature Granulocyte % (Auto) 1, Neutrophils (%) (Auto) 85H, Lymphocytes (%) (Auto) 6L, Monocytes (%) (Auto) 8, Eosinophils (%) (Auto) 0, Basophils (%) (Auto) 0, Neutrophils # (Auto) 20.1H, Lymphocytes # (Auto) 1.4, Monocytes # (Auto) 1.8H, Eosinophils # (Auto) 0.0, Basophils # (Auto) 0.1, Immature Granulocyte # (Auto) 0.3H, Neutrophils % (Manual) 85, Lymphocytes % (Manual) 3, Monocytes % (Manual) 7, Band Neutrophils 5, Percent Immature Platelet Fraction 4.8, Blood Morphology Comment NORMAL, Sodium Level 137, Potassium Level 4.6, Chloride Level 110H, Carbon Dioxide Level 18L, Anion Gap 9, Blood Urea Nitrogen 6L, Creatinine 0.63, Estimat Glomerular Filtration Rate 107, BUN/Creatinine Ratio 10, Glucose Level 103, Calcium Level 7.6L, Phosphorus Level 1.9L, Magnesium Level 2.8H 07/07/22 07:08: Blood Gas Puncture Site RR, Blood Gas Patient Temperature 37.3, Arterial Blood pH 7.37, Arterial Blood Partial Pressure CO2 38, Arterial Blood Partial Pressure O2 82, Arterial Blood HCO3 21L, Arterial Blood Total CO2 22.6, Arterial Blood Oxygen Saturation 98, Arterial Blood Base Excess -2.9L, Panda Test YES-POS, Blood Gas Ventilator Setting YES, Blood Gas Inspired Oxygen 30% 07/07/22 09:55: Blood Gas Puncture Site RR, Blood Gas Patient Temperature 37, Arterial Blood pH 7.37, Arterial Blood Partial Pressure CO2 38, Arterial Blood Partial Pressure O2 87, Arterial Blood HCO3 22L, Arterial Blood Total CO2 22.7, Arterial Blood Oxygen Saturation 98, Arterial Blood Base Excess -2.9L, Panda Test YES-POS, Blood Gas Ventilator Setting YES, Blood Gas Inspired Oxygen 30% 07/07/22 12:04: Glucometer 131H Microbiology 07/06/22 Gram Stain - Final, Resulted 07/06/22 Sputum Culture - Preliminary, Resulted Staphylococcus aureus Assessment/Plan Assessment/Plan (1) Drug overdose Status: Acute Assessment & Plan: CT head 07/05 unremarkable. Anticipate extubation today and then can discuss further next steps depending on mental status. (2) MRSA (methicillin resistant staph aureus) culture positive Status: Acute Assessment & Plan: Sputum with MRSA, CXR possible left infiltrate, vancomycin started. (3) Chronic alcohol abuse Status: Acute Assessment & Plan: Alcohol withdrawal protocol. Banana bag daily. (4) Depression Status: Chronic (5) DVT prophylaxis Status: Acute Assessment & Plan: Enoxaparin ROBSON MENON MD Jul 07, 2022 15:22
[2022-07-07 19:24] VITALS: BP 116/66
[2022-07-07] MEDS: VANCOMYCIN 750 MG/NS 250 ML IVPB IV SCH ×2 (21:02)
[2022-07-08 00:20] VITALS: BP 114/62
[2022-07-08 03:44] VITALS: BP 128/72
[2022-07-08 05:25] LABS: BASOPHILS % (AUTO) 0 % (0-10); EOSINOPHILS % (AUTO) 0 % (0-10); MONOCYTES % (AUTO) 4 % (0-12)
[2022-07-08 05:27] LABS: BASOPHILS # (AUTO) 0.1 10^3/uL (0.0-0.1); HEMATOCRIT 36 % (35-52); HEMOGLOBIN 11.8 g/dL (11.5-16.0); LYMPHOCYTES # (AUTO) 0.8 10^3/uL (1.0-4.0); LYMPHOCYTES % (AUTO) 5 % (12-44); MEAN CORPUSCULAR HEMOGLOBIN 32 pg (25-34); MEAN CORPUSCULAR HGB CONC 33 g/dL (32-36); MEAN CORPUSCULAR VOLUME 96 fL (80-99); MEAN PLATELET VOLUME 11.7 fL (9.0-12.2); MONOCYTES # (AUTO) 0.6 10^3/uL (0.0-1.0); NEUTROPHILS # (AUTO) 13.9 10^3/uL (1.8-7.8); NEUTROPHILS % (AUTO) 90 % (42-75); PLATELET COUNT 111 10^3/uL (130-400); WHITE BLOOD COUNT 15.5 10^3/uL (4.3-11.0)
[2022-07-08 05:42] LABS: CALCIUM 7.3 MG/DL (8.5-10.1); CREATININE SERUM 0.51 MG/DL (0.60-1.30); MAGNESIUM 2.2 MG/DL (1.6-2.4); PHOSPHORUS 1.5 MG/DL (2.3-4.7); POTASSIUM 3.8 MMOL/L (3.6-5.0)
[2022-07-08] MEDS: PANTOPRAZOLE 40 MG (PROTONIX) VIAL IV SCH (08:07)
[2022-07-08] MEDS: NS IV 1000 ML 1,000 ML IV SCH ×2 (08:07→17:13)
[2022-07-08] MEDS: ENOXAPARIN 40 MG/0.4 ML (LOVENOX) SYR SC SCH (08:07)
[2022-07-08] MEDS: VANCOMYCIN 750 MG/NS 250 ML IVPB IV SCH ×4 (08:08→20:01)
[2022-07-08 08:17] VITALS: BP 132/71
[2022-07-08] MEDS ORDERED: POTASSIUM PHOSPHATE INJ 30 MM in NS (IVPB) 250 ML IV ONE (09:00)
--- NOTE | 2022-07-08 09:47 | Physical Therapy Evaluation ---
PT Evaluation-General Medical Diagnosis Admission Date Jul 05, 2022 at 23:15 Medical Diagnosis: Alcohol intoxication with withdrawal and Wellbutrin and Xanax OD Onset Date: Jul 05, 2022 Therapy Diagnosis Therapy Diagnosis: generalized weakness/debility Precautions Precautions/Isolations: Contact Isolation, Fall Prevention, Suicide Referral Physician: Candis Reason for Referral: Evaluation/Treatment Medical History Pertinent Medical History: Alcoholism Current History s/p OD Reviewed History: Yes Social History Home: Single Level Current Living Status: Spouse Prior Prior Level of Function SCALE: Activities may be completed with or without assistive devices. 0-Tyhevwtngj-evrrtja completes the activity by him/herself with no assistance from a helper. 5-Set-up or Clean-up Assistance-helper sets up or cleans up; patient completes activity. [place] assists only prior to or following the activity. 4-Supervision or Touching Assistance-helper provides verbal cues and/or touching/steadying and/or contact guard assistance as patient completes activity. Assistance may be provided throughout the activity or intermittently. 3-Partial/Moderate Assistance-helper does LESS THAN HALF the effort. [place] lifts, holds or supports trunk or limbs, but provides less than half the effort. 2-Substantial/Maximal Assistance-helper does MORE THAN HALF the effort. [place] lifts or holds trunk or limbs and provides more than half the effort. 2-Juvywdleb-oknxdi does ALL the effort. Patient does none of the effort to complete the activity. Or, the assistance of 2 or more helpers is required for the patient to complete the activity. If activity was not attempted, code reason: 7-Patient Refused. 9-Not Applicable-not attempted and the patient did not perform the activity be fore the current illness, exacerbation or injury. 10-Not Attempted due to Environmental Limitations-(lack of equipment, weather restraints, etc.). 88-Not Attempted due to Medical Conditions or Safety Concerns. Bed Mobility: 6 Transfers (B,C,W/C): 6 Gait: 6 Stairs: 6 Indoor Mobility (Ambulation): Independent Stairs: Independent Prior Devices Use: None PT Evaluation-Current Subjective Patient agrees to PT. Objective Patient Orientation: Person, Time, Situation Attachments: Oxygen, Ferrari Catheter, IV ROM/Strength ROM Lower Extremities bilateral LE WFL Strength Lower Extremities 3/5 grossly bilateral LE all planes Integumentary/Posture Bowel Incontinence: No Bladder Incontinence: Ferrari Cath Posture WFL Neuromuscular (Tone, Coordination, Reflexes) diminished coordination Sensory Vision: Wears Glasses Hearing: Functional Transfers Roll Left to Right (QC): 4 Sit to Lying (QC): 4 Lying to Sitting/Side of Bed(Q: 4 Sit to Stand (QC): 3 Gait Mode of Locomotion: Walk Anticipated Mode of Locomotion: Walk Walk 10 feet (QC): 3 Walk 50 ft with 2 Turns(QC): 3 Distance: 50' Gait Assistive Device: None Comments/Gait Description PT assist to correct balance deficit on this date Balance Sitting Static: Normal Sitting Dynamic: Normal Standing Static: Fair Standing Dynamic: Fair (Fair-) Assessment/Needs Patient will be seen short term by skilled PT to address functional strength and mobility to improve current LOF to safely return to home with spouse at maximum LOF. Rehab Potential: Fair PT Snf Goals Snf Goals PT Snf Goals Time Frame: Jul 19, 2022 Roll Left & Right (QC): 6 Sit to Lying (QC): 6 Lying-Sitting on Side/Bed(QC): 6 Sit to Stand (QC): 6 Chair/Zwf-ax-Phsbg Xfer(QC): 6 Toilet Transfer (QC): 6 Walk 10 feet (QC): 6 Walk 50ft with 2 Turns (QC): 6 Walk 150 ft (QC): 6 PT Plan Problem List Problem List: Activity Tolerance, Functional Strength, Safety, Balance, Gait, Transfer Treatment/Plan Treatment Plan: Continue Plan of Care Treatment Plan: Bed Mobility, Education, Functional Activity Yari, Functional Strength, Gait, Safety, Therapeutic Exercise, Transfers Treatment Duration: Jul 19, 2022 Frequency: 6 times per week Estimated Hrs Per Day: .25 hour per day Patient and/or Family Agrees t: Yes Time Time In: 901 Time Out: 912 DATE: Jul 08, 2022 Total Billed Treatment Time: 11 Total Billed Treatment 1 visit EVLowC 11 min AJAY BARRETT PT Jul 08, 2022 09:47
[2022-07-08] MEDS: THIAMINE INJECTION 100 MG, FOLIC ACID INJECTION 1 MG, VITAMIN MULTI INJECTION 10 ML, MA... IV SCH ×5 (10:27)
--- NOTE | 2022-07-08 11:16 | Occupational Ther Daily Note ---
OT Current Status-Daily Note Subjective Up in recliner, request to get dressed, OT request IV disconnect for UE dressing needs Mental Status/Objective Patient Orientation: Situation Attachments: IV (BUEs) ADL-Treatment Full body dressing, declined shower reports had one this morning Therapy Code Descriptions/Definitions Functional [place] Measure: 0=Not Assessed/NA 4=Minimal Assistance 1=Total Assistance 5=Supervision or Setup 2=Maximal Assistance 6=Modified [place] 3=Moderate Assistance 7=Complete IndependenceSCALE: Activities may be completed with or without assistive devices. 9-Uvyrhkboei-rtrllht completes the activity by him/herself with no assistance from a helper. 5-Set-up or Clean-up Assistance-helper sets up or cleans up; patient completes activity. [place] assists only prior to or following the activity. 4-Supervision or Touching Assistance-helper provides verbal cues and/or touching/steadying and/or contact guard assistance as patient completes activity. Assistance may be provided throughout the activity or intermittently. 3-Partial/Moderate Assistance-helper does LESS THAN HALF the effort. [place] lifts, holds or supports trunk or limbs, but provides less than half the effort. 2-Substantial/Maximal Assistance-helper does MORE THAN HALF the effort. [place] lifts or holds trunk or limbs and provides more than half the effort. 2-Fnylarzup-ntqsuk does ALL the effort. Patient does none of the effort to complete the activity. Or, the assistance of 2 or more helpers is required for the patient to complete the activity. If activity was not attempted, code reason: 7-Patient Refused. 9-Not Applicable-not attempted and the patient did not perform the activity before the current illness, exacerbation or injury. 10-Not Attempted due to Environmental Limitations-(lack of equipment, weather restraints, etc.). 88-Not Attempted due to Medical Conditions or Safety Concerns. Eating (QC): 5 (pureed) Oral Hygiene (QC): 5 Shower/Bathe Self (QC): 7 (see nursing note) Upper Body Dressing (QC): 4 Lower Body Dressing (QC): 4 On/Off Footwear: 5 Toileting Hygiene (QC): 4 Toilet Transfer (QC): 4 Education OT Patient Education: Energy conservation, Modified ADL techniques, Progress toward Goal/Update tx plan, Purpose of tx/functional activities, Reviewed precautions, Rehab process, Safety issues, Transfer techniques Teaching Recipient: Patient, Family Teaching Methods: Demonstration, Discussion Response to Teaching: Verbalize Understanding, Reinforcement Needed OT Qualitative Researcher Goals Snf Goals Eating (QC): 6 Oral Hygiene (QC): 6 Toileting Hygiene (QC): 6 Shower/Bathe Self (QC): 6 Upper Body Dressing (QC): 6 Lower Body Dressing (QC): 6 On/Off Footwear (QC): 6 1=Demonstrate adherence to instructed precautions during ADL tasks. 2=Patient will verbalize/demonstrate understanding of assistive devices/modifications for ADL. 3=Patient will improve strength/tolerance for activity to enable patient to perform ADL's. OT Education/Plan Problem List/Assessment Assessment: Decreased Activ Tolerance, Decreased UE Strength, Impaired Cognition, Impaired Coordination, Impaired Funct Balance, Impaired Self-Care Skills Discharge Recommendations Plan/Recommendations: Continue POC Treatment Plan/Plan of Care Treatment,Training & Education: Yes Patient would benefit from OT for education, treatment and training to promote independence in ADL's, mobility, safety and/or upper extremity function for ADL's. Plan of Care: ADL Retraining, Cognitive Retraining, Functional Mobility, Group Exercise/Act as Ind, UE Funct Exercise/Act Treatment Duration: Jul 19, 2022 Frequency: 3 times per week (3-5 times week) Estimated Hrs Per Day: .25 hour per day Agreement: Yes Rehab Potential: Fair Resting fully dressed in recliner, spouse present, call light in reach, all needs met Time Start Time: 11:07 Stop Time: 11:20 DATE: Jul 08, 2022 Total Time Billed (hr/min): 13 Billed Treatment Time 1 visit ADL 1 13 min RAINA MOCK OT Jul 08, 2022 11:16
[2022-07-08 12:33] VITALS: BP 126/67
--- NOTE | 2022-07-08 13:03 | Speech Therapy Daily Note ---
Speech Daily Progress Note Subjective Date Seen by Provider: Jul 08, 2022 Time Seen by Provider: 12:20 The patient was seated upright in the recliner, awake and alert, upon entrance to her room by the clinician. The patient's spouse was present at bedside and remained for the skilled treatment session. The patient's vocal quality displays improvement in comparison to the prior date, with increased strength and intensity. The patient denied s/s of suspected aspiration with her current diet consistency, however, also shared with the clinician that she does not have much of an appetite. Objective The patient consumed multiple trials of thin liquid (via teaspoon and straw drink), puree, and solid. Overt s/s of suspected aspiration were not demonstrated with any consistency consumed and the patient's vocal quality remained clear following each swallow. Recommendations: - Regular consistency diet with thin liquids, as tolerated. - Fully upright and alert for P.O. intake. - Small bites and sips, only. - Monitor for s/s of suspected aspiration with P.O. intake. If demonstrated, please contact speech pathology. The results and recommendations were shared with the patient, the patient's spouse, and the patient's RN immediately following completion of the study. Assessment Assessment Current Status: Good Progress Treatment Plan Continue Plan of Care Speech Short Term Goals Short Term Goals Short Term Goals 1. The patient will display safe swallowing precautions with 80% accuracy, independently. Time Frame-STG: Three Days. Speech Field Instructor Goals Field Instructor Goals 1. The patient will tolerate the least restrictive diet consistency without s/s of suspected aspiration. Time Frame: One Week. Speech-Plan Treatment Plan Speech Therapy Treatment Plan: Continue Plan of Care Treatment Duration: Jul 11, 2022 Frequency: 3 times per week Estimated Hrs Per Day: .25 hour per day Rehab Potential: Fair Pt/Family Agrees to Plan: Yes Safety Risks/Education Teaching Recipient: Patient, Significant Other Teaching Methods: Discussion Response to Teaching: Verbalize Understanding, Return Demonstration Education Topics Provided: Results, Recommendations, Plan of Care, Safe Swallowing Strategies Time Speech Therapy Time In: 12:20 Speech Therapy Time Out: 12:40 DATE: Jul 08, 2022 Total Billed Time: 20 Billed Treatment Time ROGELIO Waller [facility] Jul 08, 2022 13:03
[2022-07-08 15:52] VITALS: BP 132/71
[2022-07-08] MEDS ORDERED: cefTRIAXone 1,000 MG in SYRINGE-IVPB 0 SYRINGE IV SCH (16:30)
--- NOTE | 2022-07-08 16:31 | Progress Note ---
Subjective Subjective/Events-last exam Pt states she is feeling pretty well this morning. Denies suicidal thoughts. Is able to state she got arrested for driving under the influence, and took pills because she thought her would divorce her. Objective Exam Last Set of Vital Signs Vital Signs Date Time Temp Pulse Resp B/P (MAP) Pulse Ox O2 Delivery O2 Flow Rate FiO2 07/08/22 15:52 36.3 100 20 132/71 (91) 94 Nasal Cannula 2.00 07/07/22 10:13 30 Capillary Refill : Less Than 3 Seconds I&O Intake and Output 07/08/22 00:00 Intake Total 2430 ml Output Total 1625 ml Balance 805 ml Intake Oral 0 ml IV Total 2430 ml Output Urine Total 1575 ml Gastric Drainage Total 50 ml General: Alert, No Acute Distress Lungs: Clear to Auscultation, Normal Air Movement Heart: Regular Rate, No Murmurs Neuro: Normal Speech Psych/Mental Status: Mental Status NL, Mood NL Results/Procedures Lab Laboratory Tests 07/08/22 04:48: White Blood Count 15.5H, Red Blood Count 3.71L, Hemoglobin 11.8, Hematocrit 36, Mean Corpuscular Volume 96, Mean Corpuscular Hemoglobin 32, Mean Corpuscular Hemoglobin Concent 33, Red Cell Distribution Width 14.1, Platelet Count 111L, Mean Platelet Volume 11.7, Immature Granulocyte % (Auto) 1, Neutrophils (%) (Auto) 90H, Lymphocytes (%) (Auto) 5L, Monocytes (%) (Auto) 4, Eosinophils (%) (Auto) 0, Basophils (%) (Auto) 0, Neutrophils # (Auto) 13.9H, Lymphocytes # (Auto) 0.8L, Monocytes # (Auto) 0.6, Eosinophils # (Auto) 0.0, Basophils # (Auto) 0.1, Immature Granulocyte # (Auto) 0.2H, Percent Immature Platelet Fraction 5.3, Sodium Level 135, Potassium Level 3.8, Chloride Level 111H, Carbon Dioxide Level 19L, Anion Gap 5, Blood Urea Nitrogen 5L, Creatinine 0.51L, Estimat Glomerular Filtration Rate 113, BUN/Creatinine Ratio 10, Glucose Level 88, Calcium Level 7.3L, Phosphorus Level 1.5L, Magnesium Level 2.2 07/08/22 16:15: Microbiology 07/06/22 Gram Stain - Final, Resulted 07/06/22 Sputum Culture - Preliminary, Resulted Staphylococcus aureus Streptococcus pneumoniae Assessment/Plan Assessment/Plan (1) Drug overdose Status: Acute Assessment & Plan: CT head 07/05 unremarkable. Extubated 07/07 [facility] to screen for discharge plan (2) MRSA (methicillin resistant staph aureus) culture positive Status: Acute Assessment & Plan: Sputum with MRSA, CXR possible left infiltrate, vancomycin started. (3) Chronic alcohol abuse Status: Acute Assessment & Plan: Alcohol withdrawal protocol. Banana bag daily. (4) Depression Status: Chronic (5) DVT prophylaxis Status: Acute Assessment & Plan: Enoxaparin ROBSON MENON MD Jul 08, 2022 16:31
[2022-07-08] MEDS: ONDANSETRON 4 MG (ZOFRAN) ORAL DISSOLVE TAB PO PRN (16:50)
[2022-07-08] MEDS: cefTRIAXone 1 GM PRE-MIX 50 ML IV SCH (17:13)
[2022-07-08 20:17] VITALS: BP 128/66
[2022-07-09 00:22] VITALS: BP 122/66
[2022-07-09] MEDS: LORazepam INJ 2 MG/ML (ATIVAN) VIAL IV PRN ×2 (00:29→20:18)
[2022-07-09 03:51] VITALS: BP 128/68
[2022-07-09] MEDS: NS IV 1000 ML 1,000 ML IV SCH ×4 (03:51→22:27)
[2022-07-09 06:05] LABS: BASOPHILS % (AUTO) 0 % (0-10); EOSINOPHILS % (AUTO) 0 % (0-10); HEMATOCRIT 36 % (35-52); LYMPHOCYTES # (AUTO) 0.7 10^3/uL (1.0-4.0); LYMPHOCYTES % (AUTO) 6 % (12-44); MEAN CORPUSCULAR HEMOGLOBIN 32 pg (25-34); MEAN CORPUSCULAR HGB CONC 34 g/dL (32-36); MEAN CORPUSCULAR VOLUME 96 fL (80-99); MEAN PLATELET VOLUME 11.4 fL (9.0-12.2); MONOCYTES # (AUTO) 0.6 10^3/uL (0.0-1.0); MONOCYTES % (AUTO) 5 % (0-12); NEUTROPHILS # (AUTO) 10.4 10^3/uL (1.8-7.8); NEUTROPHILS % (AUTO) 88 % (42-75); PLATELET COUNT 141 10^3/uL (130-400); WHITE BLOOD COUNT 11.7 10^3/uL (4.3-11.0)
[2022-07-09 06:29] LABS: CALCIUM 8.1 MG/DL (8.5-10.1); CREATININE SERUM 0.5 MG/DL (0.60-1.30); PHOSPHORUS 1.9 MG/DL (2.3-4.7); POTASSIUM 3.7 MMOL/L (3.6-5.0)
[2022-07-09] MEDS: ENOXAPARIN 40 MG/0.4 ML (LOVENOX) SYR SC SCH (06:34)
[2022-07-09] MEDS: PANTOPRAZOLE 40 MG (PROTONIX) VIAL IV SCH (07:58)
[2022-07-09] MEDS ORDERED: TROUGH ORDER-PHARMACY XX ONE (08:00)
[2022-07-09 08:01] VITALS: BP 131/76
[2022-07-09] MEDS ORDERED: POTASSIUM PHOSPHATE INJ 30 MM in NS (IVPB) 250 ML IV ONE (08:30)
--- NOTE | 2022-07-09 08:54 | Physical Therapy Daily Note ---
PT Daily Note-Current Subjective Patient sitting upright in bed upon PT arrival, agreeable to treatment. Patient rates pain currently at 0/10 Pain Section J - Health Conditions 1. Rarely or not at all 2. Occasionally 3. Frequently 4. Almost constantly 8. Unable to answer Pain Effect on Sleep: 1 Pain Interference with Therapy: 1 Pain Interference w/Day-to-Day: 1 Mental Status Patient Orientation: Person, Place, Time, Situation Attachments: Oxygen, IV Transfers SCALE: Activities may be completed with or without assistive devices. 6-Jgoriqszus-pucrrrf completes the activity by him/herself with no assistance from a helper. 5-Set-up or Clean-up Assistance-helper sets up or cleans up; patient completes activity. [place] assists only prior to or following the activity. 4-Supervision or Touching Assistance-helper provides verbal cues and/or touching/steadying and/or contact guard assistance as patient completes activity. Assistance may be provided throughout the activity or intermittently. 3-Partial/Moderate Assistance-helper does LESS THAN HALF the effort. [place] lifts, holds or supports trunk or limbs, but provides less than half the effort. 2-Substantial/Maximal Assistance-helper does MORE THAN HALF the effort. [place] lifts or holds trunk or limbs and provides more than half the effort. 6-Msvufljsq-olqkda does ALL the effort. Patient does none of the effort to complete the activity. Or, the assistance of 2 or more helpers is required for the patient to complete the activity. If activity was not attempted, code reason: 7-Patient Refused. 9-Not Applicable-not attempted and the patient did not perform the activity before the current illness, exacerbation or injury. 10-Not Attempted due to Environmental Limitations-(lack of equipment, weather restraints, etc.). 88-Not Attempted due to Medical Conditions or Safety Concerns. Roll Left & Right (QC): 6 Sit to Lying (QC): 6 Lying to Sitting/Side of Bed(Q: 6 Sit to Stand (QC): 6 Gait Training Does the Patient Walk?: Yes Distance: 500 feet Walk 10 feet (QC): 6 Walk 150 ft (QC): 6 Gait Assistive Device: None Assessment Current Status: Excellent Progress Patient tolerated treatment well. Demonstrates independence with all bed mobility and transfers. Patient ambulates 500 feet with no AD, PT for IV, and demonstrates good overall balance and gait pattern. Patient in bed post treatment with all needs met, nursing notified, call light in reach. PT Usp Goals Usp Goals PT Usp Goals Time Frame: Jul 19, 2022 Roll Left & Right (QC): 6 Sit to Lying (QC): 6 Lying-Sitting on Side/Bed(QC): 6 Sit to Stand (QC): 6 Chair/Vjw-jj-Frhbt Xfer(QC): 6 Toilet Transfer (QC): 6 Walk 10 feet (QC): 6 Walk 50ft with 2 Turns (QC): 6 Walk 150 ft (QC): 6 PT Plan Treatment/Plan Treatment Plan: Continue Plan of Care Treatment Plan: Bed Mobility, Education, Functional Activity Yari, Functional Strength, Gait, Safety, Therapeutic Exercise, Transfers Treatment Duration: Jul 19, 2022 Frequency: 6 times per week Estimated Hrs Per Day: .25 hour per day Patient and/or Family Agrees t: Yes Safety Risks/Education Patient Education: Gait Training Teaching Recipient: Patient Teaching Methods: Demonstration, Discussion Response to Teaching: Verbalize Understanding, Return Demonstration Time Time In: 832 Time Out: 849 DATE: Jul 09, 2022 Total Billed Treatment Time: 17 Total Billed Treatment Visit, Gait PAMELA TO PT Jul 09, 2022 08:53
[2022-07-09] MEDS: VANCOMYCIN 750 MG/NS 250 ML IVPB IV SCH ×2 (09:04)
--- NOTE | 2022-07-09 09:19 | Speech Therapy Daily Note ---
Speech Daily Progress Note Subjective Date Seen by Provider: Jul 09, 2022 Time Seen by Provider: 09:00 The patient was seated upright in her bed, awake and alert, upon entrance to her room by the clinician. The patient's family member is present at bedside and remains for the treatment session. The patient greeted the clinician appropriately and was agreeable to participation in the dysphagia treatment session. Objective The patient denied s/s of suspected aspiration with current P.O. intake. The patient reported her appetite is slowly improving and she continues to attempt P.O. intake. Mild odynophagia is present and the patient's vocal quality is strengthening, as well. The patient was presented thin liquids via straw drink. The patient does not display s/s of suspected aspiration with P.O. intake and her vocal quality remains clear following the swallow. Recommendations: - Continue safe swallowing recommendations and precautions. - The patient will be discharged from skilled speech pathology at this time. Assessment Assessment Current Status: Good Progress Treatment Plan Discontinue ST, Goals Met Speech Short Term Goals Short Term Goals Short Term Goals 1. The patient will display safe swallowing precautions with 80% accuracy, independently. Time Frame-STG: Three Days. Speech Custodial Goals Custodial Goals 1. The patient will tolerate the least restrictive diet consistency without s/s of suspected aspiration. Time Frame: One Week. Speech-Plan Treatment Plan Speech Therapy Treatment Plan: Discontinue ST, Goals Met Treatment Duration: Jul 11, 2022 Frequency: 3 times per week Estimated Hrs Per Day: .25 hour per day Rehab Potential: Fair Pt/Family Agrees to Plan: Yes Safety Risks/Education Teaching Recipient: Patient, Family Teaching Methods: Discussion Response to Teaching: Verbalize Understanding, Return Demonstration Education Topics Provided: Safe Swallowing Precautions, Recommendations Time Speech Therapy Time In: 09:00 Speech Therapy Time Out: 09:12 DATE: Jul 09, 2022 Total Billed Time: 12 Billed Treatment Time 1, DYST MITRA STARK Jul 09, 2022 09:18
--- NOTE | 2022-07-09 10:41 | Occupational Ther Daily Note ---
OT Current Status-Daily Note Subjective Resting in bed w/ daughter present Mental Status/Objective Patient Orientation: Normal For Age Attachments: IV ADL-Treatment Therapy Code Descriptions/Definitions Functional [place] Measure: 0=Not Assessed/NA 4=Minimal Assistance 1=Total Assistance 5=Supervision or Setup 2=Maximal Assistance 6=Modified [place] 3=Moderate Assistance 7=Complete IndependenceSCALE: Activities may be completed with or without assistive devices. 0-Onphssbwhu-yryhttk completes the activity by him/herself with no assistance from a helper. 5-Set-up or Clean-up Assistance-helper sets up or cleans up; patient completes activity. [place] assists only prior to or following the activity. 4-Supervision or Touching Assistance-helper provides verbal cues and/or touching/steadying and/or contact guard assistance as patient completes activity. Assistance may be provided throughout the activity or intermittently. 3-Partial/Moderate Assistance-helper does LESS THAN HALF the effort. [place] lifts, holds or supports trunk or limbs, but provides less than half the effort. 2-Substantial/Maximal Assistance-helper does MORE THAN HALF the effort. [place] lifts or holds trunk or limbs and provides more than half the effort. 0-Wntaqgspn-lklbrq does ALL the effort. Patient does none of the effort to co mplete the activity. Or, the assistance of 2 or more helpers is required for the patient to complete the activity. If activity was not attempted, code reason: 7-Patient Refused. 9-Not Applicable-not attempted and the patient did not perform the activity before the current illness, exacerbation or injury. 10-Not Attempted due to Environmental Limitations-(lack of equipment, weather restraints, etc.). 88-Not Attempted due to Medical Conditions or Safety Concerns. Eating (QC): 6 Oral Hygiene (QC): 5 Shower/Bathe Self (QC): 7 (declined, reported shower yesterday) Upper Body Dressing (QC): 5 Lower Body Dressing (QC): 5 On/Off Footwear: 5 Toileting Hygiene (QC): 5 Toilet Transfer (QC): 4 (LOB noted, Patient recoverd w/o assistance) Education OT Patient Education: Correct positioning, Energy conservation, Exercise program, Modified ADL techniques, Progress toward Goal/Update tx plan, Purpose of tx/functional activities, Reviewed precautions, Rehab process, Safety issues, Transfer techniques Teaching Recipient: Patient, Family Teaching Methods: Demonstration, Discussion Response to Teaching: Reinforcement Needed OT Assistant General Manager Goals Assistant General Manager Goals Eating (QC): 6 Oral Hygiene (QC): 6 Toileting Hygiene (QC): 6 Shower/Bathe Self (QC): 6 Upper Body Dressing (QC): 6 Lower Body Dressing (QC): 6 On/Off Footwear (QC): 6 1=Demonstrate adherence to instructed precautions during ADL tasks. 2=Patient will verbalize/demonstrate understanding of assistive dev ices/modifications for ADL. 3=Patient will improve strength/tolerance for activity to enable patient to perform ADL's. OT Education/Plan Problem List/Assessment Assessment: Decreased Activ Tolerance, Decreased Safety Aware, Decreased UE Strength, Impaired Coordination, Impaired Funct Balance, Impaired Self-Care Skills Discharge Recommendations Plan/Recommendations: Continue POC Treatment Plan/Plan of Care Treatment,Training & Education: Yes Patient would benefit from OT for education, treatment and training to promote independence in ADL's, mobility, safety and/or upper extremity function for ADL's. Plan of Care: ADL Retraining, Cognitive Retraining, Functional Mobility, Group Exercise/Act as Ind, UE Funct Exercise/Act Treatment Duration: Jul 19, 2022 Frequency: 3 times per week (3-5 times week) Estimated Hrs Per Day: .25 hour per day Agreement: Yes Rehab Potential: Fair Patient request to lay in bed following therapy, OT recommended up in chair, patient declined and prefers bed, daughter present Time Start Time: 10:15 Stop Time: 10:30 DATE: Jul 09, 2022 Total Time Billed (hr/min): 15 Billed Treatment Time 1 visit EX 1 15 min RAINA MOCK OT Jul 09, 2022 10:41
[2022-07-09] MEDS: THIAMINE INJECTION 100 MG, FOLIC ACID INJECTION 1 MG, VITAMIN MULTI INJECTION 10 ML, MA... IV SCH ×5 (10:56)
[2022-07-09 11:31] VITALS: BP 137/76
[2022-07-09] MEDS ORDERED: VANCOMYCIN 750 MG/NS 250 ML IVPB IV SCH ×2 (14:00)
[2022-07-09] MEDS: ONDANSETRON 4 MG (ZOFRAN) ORAL DISSOLVE TAB PO PRN (14:16)
[2022-07-09 15:27] VITALS: BP 131/68
[2022-07-09] MEDS: cefTRIAXone 1 GM PRE-MIX 50 ML IV SCH (18:01)
--- NOTE | 2022-07-09 19:09 | Progress Note ---
Subjective Subjective/Events-last exam Pt seen at 1035. States feeling okay. Denies concerns. Screened into inpatient treatment per mental health, awaiting placement. Objective Exam Last Set of Vital Signs Vital Signs Date Time Temp Pulse Resp B/P (MAP) Pulse Ox O2 Delivery O2 Flow Rate FiO2 07/09/22 15:27 37.0 93 18 131/68 (89) 92 Nasal Cannula 0.50 07/07/22 10:13 30 Capillary Refill : Less Than 3 Seconds I&O Intake and Output 07/09/22 00:00 Intake Total 2670 ml Output Total 2825 ml Balance -155 ml Intake Oral 1160 ml IV Total 1510 ml Output Urine Total 2825 ml # Bowel Movements 1 General: Alert Lungs: Clear to Auscultation, Normal Air Movement Heart: Regular Rate, No Murmurs Abdomen: Normal Bowel Sounds, Soft Neuro: Normal Speech Psych/Mental Status: Mood NL Results/Procedures Lab Laboratory Tests 07/09/22 05:25: White Blood Count 11.7H, Red Blood Count 3.72L, Hemoglobin 12.0, Hematocrit 36, Mean Corpuscular Volume 96, Mean Corpuscular Hemoglobin 32, Mean Corpuscular Hemoglobin Concent 34, Red Cell Distribution Width 13.7, Platelet Count 141, Mean Platelet Volume 11.4, Immature Granulocyte % (Auto) 1, Neutrophils (%) (Auto) 88H, Lymphocytes (%) (Auto) 6L, Monocytes (%) (Auto) 5, Eosinophils (%) (Auto) 0, Basophils (%) (Auto) 0, Neutrophils # (Auto) 10.4H, Lymphocytes # (Auto) 0.7L, Monocytes # (Auto) 0.6, Eosinophils # (Auto) 0.0, Basophils # (Auto) 0.0, Immature Granulocyte # (Auto) 0.1, Sodium Level 137, Potassium Level 3.7, Chloride Level 108H, Carbon Dioxide Level 20L, Anion Gap 9, Blood Urea Nitrogen 4L, Creatinine 0.50L, Estimat Glomerular Filtration Rate 113, BUN/Creatinine Ratio 8, Glucose Level 81, Calcium Level 8.1L, Phosphorus Level 1.9L, Magnesium Level 2.0 07/09/22 08:25: Vancomycin Level Trough 4.5L Microbiology 07/06/22 Gram Stain - Final, Resulted 07/06/22 Sputum Culture - Preliminary, Resulted Staphylococcus aureus Streptococcus pneumoniae Assessment/Plan Assessment/Plan (1) Drug overdose Status: Acute Assessment & Plan: CT head 07/05 unremarkable. Extubated 07/07 [facility] to screen for discharge plan 07/09 plan for inpatient, waiting on [facility] referral (2) MRSA (methicillin resistant staph aureus) culture positive Status: Acute Assessment & Plan: Sputum with MRSA, CXR possible left infiltrate, vancomycin started, sensitivity pending (3) Chronic alcohol abuse Status: Acute Assessment & Plan: Alcohol withdrawal protocol. Banana bag daily. (4) Depression Status: Chronic (5) Streptococcal pneumonia Status: Acute Assessment & Plan: Sputum culture with strep and MRSA. Strep sensitivities done, will adjust abx to cover strep and empiric MRSA (6) Acute respiratory insufficiency Status: Acute Assessment & Plan: Suspect secondary to pneumnia. RT to check for need for supplemental oxygen as she is on 2 lpm and not using at home [employer]. (7) Pneumonia Status: Acute Assessment & Plan: ABX as above Qualifiers: (8) DVT prophylaxis Status: Acute Assessment & Plan: Enoxaparin ROBSON MENON MD Jul 09, 2022 19:09
[2022-07-09 19:36] VITALS: BP 133/75
[2022-07-09] MEDS: guaiFENesin/DM (ROBITUSSIN DM) 10 ML UDC PO PRN (22:27)
[2022-07-09] MEDS: CLINDAMYCIN 150 MG (CLEOCIN) CAP PO SCH (23:20)
[2022-07-10 00:06] VITALS: BP 127/69
[2022-07-10] MEDS: guaiFENesin/DM (ROBITUSSIN DM) 10 ML UDC PO PRN ×4 (02:36→16:41)
[2022-07-10 03:44] VITALS: BP 132/74
[2022-07-10] MEDS: CLINDAMYCIN 150 MG (CLEOCIN) CAP PO SCH ×3 (04:56→16:40)
[2022-07-10] MEDS ORDERED: TROUGH ORDER-PHARMACY XX NR (05:00)
[2022-07-10 05:37] LABS: BASOPHILS % (AUTO) 1 % (0-10); EOSINOPHILS % (AUTO) 0 % (0-10); HEMATOCRIT 36 % (35-52); HEMOGLOBIN 11.9 g/dL (11.5-16.0); LYMPHOCYTES # (AUTO) 0.7 10^3/uL (1.0-4.0); LYMPHOCYTES % (AUTO) 9 % (12-44); MEAN CORPUSCULAR HEMOGLOBIN 32 pg (25-34); MEAN CORPUSCULAR HGB CONC 34 g/dL (32-36); MEAN CORPUSCULAR VOLUME 95 fL (80-99); MEAN PLATELET VOLUME 10.8 fL (9.0-12.2); MONOCYTES # (AUTO) 0.6 10^3/uL (0.0-1.0); MONOCYTES % (AUTO) 8 % (0-12); NEUTROPHILS # (AUTO) 6.1 10^3/uL (1.8-7.8); NEUTROPHILS % (AUTO) 82 % (42-75); PLATELET COUNT 169 10^3/uL (130-400); WHITE BLOOD COUNT 7.5 10^3/uL (4.3-11.0)
[2022-07-10 05:53] LABS: POTASSIUM 3.5 MMOL/L (3.6-5.0)
[2022-07-10 05:54] LABS: CALCIUM 8.1 MG/DL (8.5-10.1)
[2022-07-10 05:58] LABS: PHOSPHORUS 2.3 MG/DL (2.3-4.7)
[2022-07-10 05:59] LABS: CREATININE SERUM 0.54 MG/DL (0.60-1.30)
[2022-07-10 06:01] LABS: MAGNESIUM 1.7 MG/DL (1.6-2.4)
[2022-07-10] MEDS: ENOXAPARIN 40 MG/0.4 ML (LOVENOX) SYR SC SCH (07:43)
[2022-07-10 07:45] VITALS: BP 132/70
[2022-07-10] MEDS: PANTOPRAZOLE 40 MG (PROTONIX) VIAL IV SCH (08:37)
--- NOTE | 2022-07-10 10:16 | Physical Therapy Daily Note ---
PT Daily Note-Current Subjective Patient very agreeable to participate with PT. Spouse present. Pain Section J - Health Conditions 1. Rarely or not at all 2. Occasionally 3. Frequently 4. Almost constantly 8. Unable to answer Pain Effect on Sleep: 1 Pain Interference with Therapy: 1 Pain Interference w/Day-to-Day: 1 Mental Status Patient Orientation: Normal For Age Attachments: IV Transfers SCALE: Activities may be completed with or without assistive devices. 7-Sjqrpddfyg-quzaazp completes the activity by him/herself with no assistance from a helper. 5-Set-up or Clean-up Assistance-helper sets up or cleans up; patient completes activity. [place] assists only prior to or following the activity. 4-Supervision or Touching Assistance-helper provides verbal cues and/or touching/steadying and/or contact guard assistance as patient completes activity. Assistance may be provided throughout the activity or intermittently. 3-Partial/Moderate Assistance-helper does LESS THAN HALF the effort. [place] lifts, holds or supports trunk or limbs, but provides less than half the effort. 2-Substantial/Maximal Assistance-helper does MORE THAN HALF the effort. [place] lifts or holds trunk or limbs and provides more than half the effort. 9-Gnyqipylg-sgwtsy does ALL the effort. Patient does none of the effort to comp lete the activity. Or, the assistance of 2 or more helpers is required for the patient to complete the activity. If activity was not attempted, code reason: 7-Patient Refused. 9-Not Applicable-not attempted and the patient did not perform the activity before the current illness, exacerbation or injury. 10-Not Attempted due to Environmental Limitations-(lack of equipment, weather restraints, etc.). 88-Not Attempted due to Medical Conditions or Safety Concerns. Sit to Lying (QC): 6 Lying to Sitting/Side of Bed(Q: 6 Sit to Stand (QC): 6 Gait Training Distance: >500' Walk 10 feet (QC): 6 Walk 50 ft with 2 Turns(QC): 6 Walk 150 ft (QC): 6 Gait Assistive Device: None safe and functional with no deviation Assessment Patient is currently at independent PLOF with all gross motor skills safely and no longer requires skilled PT intervention. PT to dismiss patient from services at this time. PT Range Rider Goals Range Rider Goals PT Longterm Goals Time Frame: Jul 19, 2022 Roll Left & Right (QC): 6 Sit to Lying (QC): 6 Lying-Sitting on Side/Bed(QC): 6 Sit to Stand (QC): 6 Chair/Pav-no-Fsmqz Xfer(QC): 6 Toilet Transfer (QC): 6 Walk 10 feet (QC): 6 Walk 50ft with 2 Turns (QC): 6 Walk 150 ft (QC): 6 PT Plan Treatment/Plan Treatment Plan: Continue Plan of Care Treatment Plan: Bed Mobility, Education, Functional Activity Yari, Functional Strength, Gait, Safety, Therapeutic Exercise, Transfers Treatment Duration: Jul 19, 2022 Frequency: 6 times per week Estimated Hrs Per Day: .25 hour per day Patient and/or Family Agrees t: Yes Time Time In: 855 Time Out: 904 DATE: Jul 10, 2022 Total Billed Treatment Time: 9 Total Billed Treatment 1 visit FA 9 min AJAY BARRETT PT Jul 10, 2022 10:16
--- NOTE | 2022-07-10 10:18 | Occupational Ther Daily Note ---
OT Current Status-Daily Note Subjective Patient agreeable to DC, safety education provided for ambulation room and IV Mental Status/Objective Patient Orientation: Person, Situation Attachments: IV ADL-Treatment Patient completed ADLS Modified independent w/ IV detached Therapy Code Descriptions/Definitions Functional [place] Measure: 0=Not Assessed/NA 4=Minimal Assistance 1=Total Assistance 5=Supervision or Setup 2=Maximal Assistance 6=Modified [place] 3=Moderate Assistance 7=Complete IndependenceSCALE: Activities may be completed with or without assistive devices. 4-Sezfwuukvt-axozdqc completes the activity by him/herself with no assistance from a helper. 5-Set-up or Clean-up Assistance-helper sets up or cleans up; patient completes activity. [place] assists only prior to or following the activity. 4-Supervision or Touching Assistance-helper provides verbal cues and/or touching/steadying and/or contact guard assistance as patient completes activity. Assistance may be provided throughout the activity or intermittently. 3-Partial/Moderate Assistance-helper does LESS THAN HALF the effort. [place] lifts, holds or supports trunk or limbs, but provides less than half the effort. 2-Substantial/Maximal Assistance-helper does MORE THAN HALF the effort. [place] lifts or holds trunk or limbs and provides more than half the effort. 6-Vnmgyrayd-ubzkty does ALL the effort. Patient does none of the effort to complete the activity. Or, the assistance of 2 or more helpers is required for the patient to complete the activity. If activity was not attempted, code reason: 7-Patient Refused. 9-Not Applicable-not attempted and the patient did not perform the activity before the current illness, exacerbation or injury. 10-Not Attempted due to Environmental Limitations-(lack of equipment, weather restraints, etc.). 88-Not Attempted due to Medical Conditions or Safety Concerns. Eating (QC): 6 Oral Hygiene (QC): 6 Shower/Bathe Self (QC): 5 (d/t fall risk of floor, patient is set up for shower later today) Upper Body Dressing (QC): 6 Lower Body Dressing (QC): 6 On/Off Footwear: 6 Toileting Hygiene (QC): 6 Toilet Transfer (QC): 6 DC OT goals met for acute hospital setting Education OT Patient Education: Correct positioning, Energy conservation, Home exercise program, Rehab process, Safety issues Teaching Recipient: Patient, Family Teaching Methods: Discussion Response to Teaching: Verbalize Understanding, Return Demonstration OT Field Service Representative Goals Field Service Representative Goals Eating (QC): 6 Oral Hygiene (QC): 6 Toileting Hygiene (QC): 6 Shower/Bathe Self (QC): 6 Upper Body Dressing (QC): 6 Lower Body Dressing (QC): 6 On/Off Footwear (QC): 6 1=Demonstrate adherence to instructed precautions during ADL tasks. 2=Patient will verbalize/demonstrate understanding of assistive devices/modifications for ADL. 3=Patient will improve strength/tolerance for activity to enable patient to perform ADL's. OT Education/Plan Discharge Recommendations Plan/Recommendations: Discharge/Goals Met Treatment Plan/Plan of Care Patient would benefit from OT for education, treatment and training to promote independence in ADL's, mobility, safety and/or upper extremity function for ADL's. Plan of Care: ADL Retraining, Cognitive Retraining, Functional Mobility, Group Exercise/Act as Ind, UE Funct Exercise/Act Treatment Duration: Jul 19, 2022 Frequency: 3 times per week (3-5 times week) Estimated Hrs Per Day: .25 hour per day Agreement: Yes Rehab Potential: Fair Time Start Time: 09:13 Stop Time: 09:28 DATE: Jul 10, 2022 Total Time Billed (hr/min): 15 Billed Treatment Time 1 FA 1 15 min RAINA MOCK OT Jul 10, 2022 10:18
[2022-07-10 11:41] VITALS: BP 143/71
[2022-07-10] MEDS: NS IV 1000 ML 1,000 ML IV SCH ×2 (12:15→16:09)
--- NOTE | 2022-07-10 12:28 | Discharge Summary ---
Discharge Summary Hospital Course Problems/Dx: (1) Drug overdose Status: Acute (2) Acute delirium Status: Acute (3) Chronic alcohol abuse Status: Acute Hospital Course Date of Admission: Jul 05, 2022 at 23:15 Admission Diagnosis : Family Physician/Provider: AsterLocal Physician Date of Discharge: 07/10/22 Discharge Diagnosis: [ ] Hospital Course: [ ] Labs and Pending Lab Test: Laboratory Tests 07/10/22 05:16: White Blood Count 7.5, Red Blood Count 3.73L, Hemoglobin 11.9, Hematocrit 36, Mean Corpuscular Volume 95, Mean Corpuscular Hemoglobin 32, Mean Corpuscular Hemoglobin Concent 34, Red Cell Distribution Width 13.4, Platelet Count 169, Mean Platelet Volume 10.8, Immature Granulocyte % (Auto) 1, Neutrophils (%) (Auto) 82H, Lymphocytes (%) (Auto) 9L, Monocytes (%) (Auto) 8, Eosinophils (%) (Auto) 0, Basophils (%) (Auto) 1, Neutrophils # (Auto) 6.1, Lymphocytes # (Auto) 0.7L, Monocytes # (Auto) 0.6, Eosinophils # (Auto) 0.0, Basophils # (Auto) 0.0, Immature Granulocyte # (Auto) 0.0, Sodium Level 137, Potassium Level 3.5L, Chl oride Level 107, Carbon Dioxide Level 20L, Anion Gap 10, Blood Urea Nitrogen 6L, Creatinine 0.54L, Estimat Glomerular Filtration Rate 111, BUN/Creatinine Ratio 11, Glucose Level 93, Calcium Level 8.1L, Phosphorus Level 2.3, Magnesium Level 1.7 Microbiology 07/06/22 Gram Stain - Final, Resulted 07/06/22 Sputum Culture - Preliminary, Resulted Staphylococcus aureus Streptococcus pneumoniae Home Meds Active Reported Benadryl (Diphenhydramine HCl) 25 Mg Capsule 25 Mg PO DAILY PRN Ibuprofen 200 Mg Tablet 600 Mg PO Q8H PRN TAKES 3 (200MG) TABS Melatonin 5 Mg Tablet 5 Mg PO HS Stool Softener (Docusate Sodium) 100 Mg Capsule 100 Mg PO DAILY PRN Escitalopram Oxalate 20 Mg Tablet 30 Mg PO DAILY TAKES 1 AND 1/2 OF (20MG) TABS Furosemide 20 Mg Tablet 20 Mg PO HS Bupropion Xl (Bupropion HCl) 150 Mg Tab.er.24h 150 Mg PO HS Alprazolam 0.5 Mg Tablet 0.5 Mg PO BID Discharge Physical Examination Vital Signs Vital Signs Date Time Temp Pulse Resp B/P (MAP) Pulse Ox O2 Delivery O2 Flow Rate FiO2 07/10/22 11:41 36.7 84 18 143/71 (95) 94 Nasal Cannula 1.00 07/07/22 10:13 30 Allergies: Uncoded Allergies: Unknown (Allergy, Unknown, 07/05/22) Unknown what allergies are Discharge Summary Date of Admission Jul 05, 2022 at 23:15 Date of Discharge Discharge Date: Jul 10, 2022 Admission Diagnosis Assessment: Acute respiratory failure requiring intubation Acute alcohol intoxication with withdrawal OD on Wellbutrin and Xanax Plan: EICU appreciated Vent management Supportive care IVF Discharge Diagnosis (1) Drug overdose Status: Acute (2) Acute delirium Status: Acute (3) Chronic alcohol abuse Status: Acute MARGIE KOHLI DO Jul 10, 2022 12:28
[2022-07-10] MEDS ORDERED: proPOfol 200 MG/20 ML (DIPRIVAN) VIAL IV ONE (12:45)
[2022-07-10] MEDS ORDERED: SUCCINYLCHOLINE INJ 100 MG/5 ML SYR/VIAL INJ ONE (12:45)
--- NOTE | 2022-07-10 12:52 | Progress Note - Hospitalist ---
LEESA JERNIGAN 07/10/22 1252: Subjective HPI/CC On Admission Date Seen by Provider: Jul 10, 2022 Time Seen by Provider: 10:00 CC: Alcohol intoxication with withdrawal and Wellbutrin and Xanax OD HPI: Today Lisa says she is doing okay. She denies n/v/d, tremors, palpitations and SOB. She says she has been waiting to hear about arrangements for her discharge. Her understanding was that they were waiting for an inpatient psych opening but she says she is open to going home with outpatient arrangements for psych eval. She denies active SI. Hospital Course: Lisa is a 51 yo F w/ hx of depression, anxiety, and alcoholism who presented on 07/05/22 with her after having ingested an unknown quantity of welbutrin and xanax. She was tremulous and delirious at the time of presentation and was admitted for concerns of alcohol w/d and welbutrin and xanax OD. She was also intubated to protect her airway. Cardiac w/u was negative for arrythmias and the rest of her w/u was benign. She remained intuba ren[place] until 07/07/22 when she was transitioned to [place]. While intubated she developed a pneumonia which was treated with clindamycin for concerns of aspiration pneumonia. She received ativan during the course of her stay for concerns of alcohol w/d. While waiting for placement at an inpatient psych unit she decided she would be okay with discharging and arranging for outpatient psych treatment. Review of Systems HEENT: No Visual Changes Pulmonary: No Dyspnea; Cough Cardiovascular: No: Chest Pain, Palpitations Gastrointestinal: No: Nausea, Vomiting, Abdominal Pain, Diarrhea Neurological: No: Confusion Objective Exam Vital Signs Vital Signs Date Time Temp Pulse Resp B/P (MAP) Pulse Ox O2 Delivery O2 Flow Rate FiO2 07/10/22 11:41 36.7 84 18 143/71 (95) 94 Nasal Cannula 1.00 07/07/22 10:13 30 Capillary Refill : Less Than 3 Seconds General Appearance: No Apparent Distress, Anxious HEENT: PERRL/EOMI, Moist Mucous Membranes Neck: Supple; No JVD Respiratory: Lungs Clear, Normal Breath Sounds, No Accessory Muscle Use, No Respiratory Distress Cardiovascular: Regular Rate, Rhythm, No Edema, No JVD, No Murmur, Normal Peripheral Pulses Extremity: Other (no c/c/e.) Neurologic/Psychiatric: Alert, Oriented x3, Other (moves all extremities spontaneously.) Skin: Normal Color, Warm/Dry Results/Procedures Lab Laboratory Tests 07/10/22 05:16 Patient resulted labs reviewed. Imaging: Reviewed Imaging Films Assessment/Plan Assessment and Plan Assess & Plan/Chief Complaint Acute respiratory failure requiring intubation Acute alcohol intoxication with withdrawal OD on Wellbutrin and Xanax -ekg was negative -receiving ativan 1mg q2 prn for WD symptoms -now on RA, satting in 90s Pneumonia cough -cxr 07/06 with possible infiltrate -on clindamycin for aspiration coverage Depression with SI Anxiety -not in active SI -takes welbutrin, xanax at home -agreeable to outpatient treatment Dispo: Dc to home with arrangements for outpatient psych treatment. RADHA KOHLI DO 07/11/22 0458: Supervisory-Addendum Brief Verification & Attestation Participated in pt care: history, MDM, physical Personally performed: exam, history, MDM, supervision of care Care discussed with: Medical Student Procedures: n/a Results interpretation: Verified all documentation Verification and Attestation of Medical Student E/M Service A medical student performed and documented this service in my presence. I reviewed and verified all information documented by the medical student and made modifications to such information, when appropriate. I personally performed the physical exam and medical decision making. Radha Kohli Jul 11, 2022,04:58 LEESA JERNIGAN Jul 10, 2022 12:52 RADHA KOHLI DO Jul 11, 2022 04:58
[2022-07-10] MEDS ORDERED: CATHETER FLUSH 10 ML SYR IVP PRN (14:30)
[2022-07-10] MEDS ORDERED: CLIN-144 PO (16:44)
--- NOTE | 2022-07-10 16:44 | Discharge Summary ---
Discharge Summary Hospital Course Was the Problem List Reviewed?: Yes Problems/Dx: (1) Drug overdose Status: Acute (2) Acute delirium Status: Acute (3) Chronic alcohol abuse Status: Acute Hospital Course Date of Admission: Jul 05, 2022 at 23:15 Admission Diagnosis : Family Physician/Provider: No,Local Physician Date of Discharge: 07/10/22 Discharge Diagnosis: [ ] Hospital Course: Hospital Course: Lisa is a 51 yo F w/ hx of depression, anxiety, and alcoholism who presented on 07/05/22 with her after having ingested an unknown quantity of welbutrin and xanax. She was tremulous and delirious at the time of presentation and was admitted for concerns of alcohol w/d and welbutrin and xanax OD. She was also intubated to protect her airway. Cardiac w/u was negative for arrythmias and the rest of her w/u was benign. She remained intubated until 07/07/22 when she was transitioned to [place]. While intubated she developed a pneumonia which was treated with clindamycin for concerns of aspiration pneumonia. She received ativan during the course of her stay for concerns of alcohol w/d. While waiting for placement at an inpatient psych unit she decided she would be okay with discharging and arranging for outpatient psych treatment. Labs and Pending Lab Test: Laboratory Tests 07/10/22 05:16: White Blood Count 7.5, Red Blood Count 3.73L, Hemoglobin 11.9, Hematocrit 36, Mean Corpuscular Volume 95, Mean Corpuscular Hemoglobin 32, Mean Corpuscular Hemoglobin Concent 34, Red Cell Distribution Width 13.4, Platelet Count 169, Mean Platelet Volume 10.8, Immature Granulocyte % (Auto) 1, Neutrophils (%) (Auto) 82H, Lymphocytes (%) (Auto) 9L, Monocytes (%) (Auto) 8, Eosinophils (%) (Auto) 0, Basophils (%) (Auto) 1, Neutrophils # (Auto) 6.1, Lymphocytes # (Auto) 0.7L, Monocytes # (Auto) 0.6, Eosinophils # (Auto) 0.0, Basophils # (Auto) 0.0, Immature Granulocyte # (Auto) 0.0, Sodium Level 137, Potassium Level 3.5L, Chloride Level 107, Carbon Dioxide Level 20L, Anion Gap 10, Blood Urea Nitrogen 6L, Creatinine 0.54L, Estimat Glomerular Filtration Rate 111, BUN/Creatinine Ratio 11, Glucose Level 93, Calcium Level 8.1L, Phosphorus Level 2.3, Magnesium Level 1.7 Microbiology 07/06/22 Gram Stain - Final, Resulted 07/06/22 Sputum Culture - Preliminary, Resulted Staphylococcus aureus Susceptibility To Follow Streptococcus pneumoniae Home Meds Active Reported Benadryl (Diphenhydramine HCl) 25 Mg Capsule 25 Mg PO DAILY PRN Ibuprofen 200 Mg Tablet 600 Mg PO Q8H PRN TAKES 3 (200MG) TABS Melatonin 5 Mg Tablet 5 Mg PO HS Stool Softener (Docusate Sodium) 100 Mg Capsule 100 Mg PO DAILY PRN Furosemide 20 Mg Tablet 20 Mg PO HS Assessment/Pt Instructions Psych treatment as scheduled Discharge Planning: <30 minutes discharge planning Discharge Instructions Discharge Diet: Regular Diet Discharge Physical Examination Vital Signs Vital Signs Date Time Temp Pulse Resp B/P (MAP) Pulse Ox O2 Delivery O2 Flow Rate FiO2 07/10/22 11:41 36.7 84 18 143/71 (95) 94 Nasal Cannula 1.00 07/07/22 10:13 30 General Appearance: No Apparent Distress, WD/WN, Chronically ill Respiratory: Lungs Clear, Normal Breath Sounds Neurologic/Psychiatric: Alert, Oriented x3, No Motor/Sensory Deficits, Normal Mood/Affect Allergies: Uncoded Allergies: Unknown (Allergy, Unknown, 07/05/22) Unknown what allergies are Discharge Summary Date of Admission Jul 05, 2022 at 23:15 Date of Discharge Discharge Date: Jul 10, 2022 Admission Diagnosis Assessment: Acute respiratory failure requiring intubation Acute alcohol intoxication with withdrawal OD on Wellbutrin and Xanax Plan: EICU appreciated Vent management Supportive care IVF Discharge Diagnosis (1) Drug overdose Status: Acute (2) Acute delirium Status: Acute (3) Chronic alcohol abuse Status: Acute MARGIE KOHLI DO Jul 10, 2022 16:44
[2022-07-10 17:25] VITALS: BP 143/71
== END 2022-07-10 17:15 | disposition home or self-care (01) | DRG 917 ==
LOC: EDUNIT# 20:50 → ER FS 20:55 → ICU 23:15 → 4TH 07-07 16:35
PROVIDERS: ADMIT Internal Medicine; ATTEND Internal Medicine
PROC: 5A1945Z Respiratory Ventilation, 24-96 Consecutive Hours (ICD-10-PCS; principal; 2022-07-05)
PROC: 0BH17EZ Insertion of Endotracheal Airway into Trachea, Via Natural or Artificial Opening (ICD-10-PCS; 2022-07-05)
DX: T42.4X2A Poisoning by benzodiazepines, intentional self-harm, initial encounter (principal); J15.212 Pneumonia due to Methicillin resistant Staphylococcus aureus; J96.00 Acute respiratory failure, unspecified whether with hypoxia or hypercapnia; J69.0 Pneumonitis due to inhalation of food and vomit; F10.231 Alcohol dependence with withdrawal delirium; T43.292A Poisoning by other antidepressants, intentional self-harm, initial encounter; R45.1 Restlessness and agitation; R25.1 Tremor, unspecified; R61 Generalized hyperhidrosis; Z20.822 Contact with and (suspected) exposure to COVID-19; R00.0 Tachycardia, unspecified; R40.0 Somnolence; R55 Syncope and collapse; F32.A Depression, unspecified; F41.9 Anxiety disorder, unspecified; Y90.0 Blood alcohol level of less than 20 mg/100 ml
CPT/HCPCS: 31500; 36415; 36600; 51702; 70450; 71045; 80048; 80053; 80202; 80306; 80320; 80329; 82550; 82805; 82947; 83735; 84100; 84132; 84478; 85007; 85025; 85027; 87070; 87077; 87081; 87181; 87184; 87186; 87205; 87636; 93005; 93041; 94002; 94003; 94761; 94799